=== PATIENT | male | born 1945 | race African-American/Black ===

== ENCOUNTER 2018-06-18 08:37 | Emergency (ER) | payer MEDICARE, MEDICAID ==
--- NOTE | 2018-06-18 09:43 | RAD ---
LEFT KNEE 4 VIEWS: Date; 06/18/18 COMPARISON: None. HISTORY: Left knee swelling for 2 days. FINDINGS: There is a nonspecific large knee joint effusion. There is atherosclerotic calcification posterior to the distal femur and proximal tibia. There is mild medial compartment narrowing with osteophyte formation of the medial femoral condyle. N o acute fracture or dislocation. IMPRESSION: Nonspecific large knee joint effusion which may be inflammatory/infectious in nature. No acute fractu re or evidence of dislocation seen. POS: HECTOR
[2018-06-18] MEDS ORDERED: Lidocaine 1% (PF) 30 ML VIAL ONE (09:57)
[2018-06-18] MEDS ORDERED: HYDROcodone/Acetaminophen 10/325 mg Tablet ONE (09:58)
[2018-06-18 11:07] LABS: Body Fluid Source SYNOVIAL FLUID
[2018-06-18 11:08] LABS: BF Color Yellow; Clarity Cloudy/Turbid (Clear); Tube # EDTA
[2018-06-18 11:11] LABS: RBC Background Count 0.008
[2018-06-18 11:14] LABS: WBC/NonHematic-Auto 11000 /cumm
[2018-06-18 11:15] LABS: RBC Count-Automated 17000 /cumm
[2018-06-18 12:32] LABS: BF Segmented Neutrophils 80 %; Cell Count Non Hematic 17 %; Lymphocytes 3 %
== END 2018-06-18 11:40 | disposition home or self-care (01) ==
LOC: ERS 08:37
DX: M25.462 Effusion, left knee (principal); M25.562 Pain in left knee; E78.5 Hyperlipidemia, unspecified; I10 Essential (primary) hypertension; M10.9 Gout, unspecified; F17.210 Nicotine dependence, cigarettes, uncomplicated; Z79.899 Other long term (current) drug therapy
CPT/HCPCS: 20610; 85060; 87070; 87205; 89051; 89060; J2001

== ENCOUNTER 2018-06-19 12:18 | Emergency (ER) | payer MEDICARE, MEDICAID ==
[2018-06-19 12:49] LABS: #Lymphocytes 2.2 thou/uL (1.20-3.40); #Monocytes 1.2 thou/uL (0.11-0.59); #Neutrophils 8.6 thou/uL (1.40-6.50); %Basophils 0.4 % (0.0-1.0); %Eosinophils 0.2 % (0.0-10.0); %Lymphocytes 17.8 % (21.0-51.0); %Monocytes 10.3 % (0.0-10.0); %Neutrophils 71.4 % (42.0-75.0); Hemoglobin 10.8 g/dL (14.0-18.0); Mean Corpuscular HGB CONC 32.7 g/dL (32.0-36.0); Mean Corpuscular Hemoglobin 25.6 pg (27.0-31.0); Mean Corpuscular Volume 78.4 fL (78.0-98.0); Mean Platelet Volume 8.8 fL (7.4-10.4); Platelet Count 277 thou/uL (130-400); RBC Distribution Width 13.5 % (11.5-14.5); Red Blood Cell (RBC) Count 4.19 mill/uL (4.70-6.10); White Blood Cell (WBC) Count 12.1 thou/uL (4.8-10.8)
[2018-06-19] MEDS ORDERED: Acetaminophen 500 MG TAB ONE (12:53)
[2018-06-19] MEDS ORDERED: Morphine 4 MG/ML VIAL ONE (12:53)
[2018-06-19 12:54] LABS: INR-International Normal Ratio 1.1; PTT 39.2 SEC (22.9-36.1); Prothrombin Time 14.3 SEC (12.0-14.7)
[2018-06-19 13:13] LABS: ALT (SGPT) 13 U/L (8-55); AST (SGOT) 13 U/L (5-34); Alkaline Phosphatase 46 U/L (40-150); Anion Gap 17 mmol/L (10-20); BUN (Urea Nitrogen) 16 mg/dL (8.4-25.7); Bilirubin, Total 0.5 mg/dL (0.2-1.2); Calc. Creatinine Clearance 0 mL/min (70-130); Calcium 9.6 mg/dL (7.8-10.44); Carbon Dioxide 21 mmol/L (23-31); Chloride 103 mmol/L (98-107); Estimated GFR-MDRD 49; Globulin 3.7 g/dL (2.4-3.5); Glucose 101 mg/dL (83-110); Potassium 3.8 mmol/L (3.5-5.1); Protein, Total 7.7 g/dL (5.8-8.1); Sodium 137 mmol/L (136-145)
[2018-06-19 14:18] LABS: BF Color Yellow; Body Fluid Source SYNOVIAL FLUID; Clarity Cloudy/Turbid (Clear); Tube # EDTA
[2018-06-19 14:19] LABS: RBC Background Count 0.004; RBC Count-Automated 14000 /cumm; WBC/NonHematic-Auto 11800 /cumm
[2018-06-19 14:37] LABS: BF Segmented Neutrophils 87 %; Cell Count Non Hematic 11 %; Lymphocytes 2 %
== END 2018-06-19 14:47 | disposition home or self-care (01) ==
LOC: ERS 12:18
DX: M10.9 Gout, unspecified (principal); E78.5 Hyperlipidemia, unspecified; I10 Essential (primary) hypertension; F17.210 Nicotine dependence, cigarettes, uncomplicated; Z79.899 Other long term (current) drug therapy; Z79.1 Long term (current) use of non-steroidal anti-inflammatories (NSAID); Z79.891 Long term (current) use of opiate analgesic
CPT/HCPCS: 20611; 80053; 82945; 85025; 85060; 85610; 85652; 85730; 86140; 87070; 87205; 89051; 89060; 96374; J2270

== ENCOUNTER 2019-01-20 13:13 | Inpatient (IN) | payer MEDICARE, MEDICAID ==
[2019-01-20 14:19] LABS: #Lymphocytes 1.8 thou/uL (1.20-3.40); #Monocytes 1.1 thou/uL (0.11-0.59); #Neutrophils 6.6 thou/uL (1.40-6.50); %Basophils 0.2 % (0.0-1.0); %Eosinophils 0.5 % (0.0-10.0); %Lymphocytes 19.1 % (21.0-51.0); %Monocytes 11.4 % (0.0-10.0); %Neutrophils 68.9 % (42.0-75.0); Hemoglobin 12.1 g/dL (14.0-18.0); Mean Corpuscular HGB CONC 33.3 g/dL (32.0-36.0); Mean Platelet Volume 8.7 fL (7.4-10.4); Platelet Count 257 thou/uL (130-400); RBC Distribution Width 14.5 % (11.5-14.5); Red Blood Cell (RBC) Count 4.49 mill/uL (4.70-6.10); White Blood Cell (WBC) Count 9.6 thou/uL (4.8-10.8)
--- NOTE | 2019-01-20 14:38 | RAD ---
EXAM: 2 views of the left elbow HISTORY: Elbow pain COMPARISON: 04/01/2011 FINDINGS: No elbow effusion is seen. There is no evidence of acute fracture or dislocation. No signi ficant degenerative changes are seen. No soft tissue swelling is present. IMPRESSION: No evidence of acute osseous abnormality.
[2019-01-20 14:44] LABS: ALT (SGPT) 9 U/L (8-55); AST (SGOT) 13 U/L (5-34); Albumin 3.9 g/dL (3.4-4.8); Alkaline Phosphatase 51 U/L (40-150); Anion Gap 13 mmol/L (10-20); BUN (Urea Nitrogen) 16 mg/dL (8.4-25.7); Bilirubin, Total 0.4 mg/dL (0.2-1.2); Calc. Creatinine Clearance 0 mL/min (70-130); Calcium 9.7 mg/dL (7.8-10.44); Carbon Dioxide 22 mmol/L (23-31); Chloride 106 mmol/L (98-107); Estimated GFR-MDRD 58; Globulin 3.5 g/dL (2.4-3.5); Glucose 116 mg/dL (83-110); Potassium 3.7 mmol/L (3.5-5.1); Protein, Total 7.4 g/dL (5.8-8.1); Sodium 137 mmol/L (136-145)
[2019-01-20] MEDS ORDERED: Ondansetron PF 4 MG/2 ML Vial ONE (15:29)
[2019-01-20] MEDS ORDERED: Morphine 4 MG/ML VIAL ONE (15:29)
[2019-01-20] MEDS ORDERED: Lidocaine 1% (PF) 30 ML VIAL ONE (15:50)
[2019-01-20 16:18] LABS: Lactic Acid 1.2 mmol/L (0.5-2.2)
[2019-01-20] MEDS ORDERED: Piperacillin/Tazobactam 3.375 GM VIAL ONE (16:18)
[2019-01-20] MEDS ORDERED: Ketorolac Tromethamine 30 MG/ML VIAL ONE (16:18)
[2019-01-20] MEDS ORDERED: Vancomycin HCl 1.5 GM in Sodium Chloride 0.9% 250 ML 300 ML IVPB SCH (16:30)
[2019-01-20] MEDS ORDERED: Ondansetron PF 4 MG/2 ML Vial IVP PRN ×2 (21:02→21:31)
[2019-01-20] MEDS ORDERED: Acetaminophen 325 MG TAB PO PRN ×2 (21:02→21:24)
[2019-01-20] MEDS ORDERED: HYDROcodone/Acetaminophen 5/325 mg Tablet PO PRN ×2 (21:02)
[2019-01-20] MEDS ORDERED: Ondansetron ODT 4 MG TAB SL PRN (21:02)
[2019-01-20] MEDS ORDERED: hydrALAZINE 20 MG/ML VIAL SLOW IVP PRN (21:24)
[2019-01-20] MEDS ORDERED: Nicotine 14 MG PATCH TD PRN (21:24)
[2019-01-20] MEDS ORDERED: Ondansetron ODT 4 MG TAB PO PRN (21:24)
[2019-01-20] MEDS ORDERED: Senokot S 8.6-50 MG TAB PO PRN (21:24)
[2019-01-20] MEDS ORDERED: Lorazepam 2 MG/ML VIAL SLOW IVP PRN (21:28)
[2019-01-20] MEDS ORDERED: traMADol HCl 50 MG TAB PO PRN ×2 (21:31)
[2019-01-20 21:37] VITALS: BMI 33.0
--- NOTE | 2019-01-20 22:15 | HP ---
CHIEF COMPLAINT: Elbow pain. HISTORY OF PRESENT ILLNESS: This is a 73-year-old male with history of hypertension, chronic kidney disease stage 3, anemia, gout, dyslipidemia, and daily alcohol and tobacco use, who presents to the emergency room complaining of left elbow pain and difficulty straightening his left arm. The patient notes 5 or 6 days ago the onset of a pimple on his left elbow that he was scratching and picking. He reports around 3 days ago the onset of intermittent sharp pain as well as swelling and inability to bend or straighten his elbow. The symptoms did not improve, he decided to seek care today for this. He also has similar symptoms of swelling and pain in his left fifth finger. He reports a history of both in the past related to gout. At home, he tried some Tylenol for the pain, without any relief. He is left-handed, denies any trauma, denies any problems with his elbow before this. He denies any fevers, chills, nausea, or vomiting. In the emergency room, the patient evaluated, and presentation concerning for septic bursitis. He received vancomycin 1.5 g, Zosyn 3.375 g, ketorolac 15 mg, morphine 4 mg, Zofran 4 mg and hospitalist called for admission. There was also an attempt to aspirate by Orthopedics, however, no return of fluid. ALLERGIES: NO KNOWN DRUG ALLERGIES. CURRENT MEDICATIONS: Unknown. The patient's thinks that he is on the following but this list is not complete; 1. Hydralazine. 2. Amlodipine. 3. Colcrys. PAST MEDICAL HISTORY: 1. Gout. 2. Hypertension. 3. Dyslipidemia. 4. Chronic kidney disease, stage 3, followed by Dr. Thompson. 5. Murmur. PAST SURGICAL HISTORY: Hernia repair. SOCIAL HISTORY: The patient is , has 9 children, uses tobacco daily, he formerly used marijuana, and drinks a beer or 2 daily. His is his surrogate decision maker and he is a full code. FAMILY HISTORY: Significant for diabetes, hypertension, and cancer. REVIEW OF SYSTEMS: Negative for fevers, chills, nausea, vomiting, any dental pain. Positive for an occasional shortness of breath with exertion. All remaining review of systems are reviewed and negative. PHYSICAL EXAMINATION: VITAL SIGNS: Blood pressure 147/89, pulse 80, respirations 16, temperature 99.5 , and sats 96% on room air. GENERAL: Awake, alert, and responsive, in no apparent distress. Able to speak in full sentences. HEENT: Poor dentition. Oral mucosa is pink and moist. NECK: Supple and nontender. LYMPHATICS: No palpable cervical or supraclavicular lymphadenopathy. LUNGS: Clear to auscultation bilateral. No audible wheezing, rhonchi, or rales. 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 ABDOMEN: Soft. Present bowel sounds. Nontender. Nondistended. EXTREMITIES: No pitting edema. MUSCULOSKELETAL: His left elbow, he has erythema, edema, tenderness to palpation along the olecranon bursa without any palpable fluctuance. He also has edema of the PIP of the left fifth digit. VASCULAR: 2+ dorsalis pedis pulses. PSYCH: Appears euthymic. NEUROLOGIC: No gross deficits. DANIEL FINDINGS AND TEST RESULTS: CBC; 9.6, 12.1, 36.4, and 257. ESR 75. Renal panel; 137, 3.7, 106, 22, 60, 1.44, and 160. Uric acid 7.9, lactic acid 1.2. CRP 13.1. LFTs are normal. X-ray no acute abnormality. IMPRESSION: 1. Left olecranon bursitis in the context of a papule 5 to 6 days ago and concern for infection, as well as known gout. 2. Left fifth proximal interphalangeal edema and pain, with the same differential as above. 3. Chronic kidney disease, stage 3, stable. 4. Hypertension, unknown control. 5. Chronic anemia, stable. 6. Dyslipidemia. 7. Daily alcohol use. 8. Tobacco abuse. PLAN: 1. Admission in the hospital. 2. Continuing vancomycin with request for Pharmacy to dose, continuing the Zosyn. 3. Orthopedics consult. We will request that they follow along. 4. Obtain home medications and restart if appropriate. 5. Due to renal function, avoid NSAIDs. We will treat the pain, continue the colchicine and monitor for change if this is gout. May need steroids, we will defer to orthopedics. Again, due to his renal function, avoiding NSAIDs. 6. Monitor for any alcohol withdrawal symptoms. 7. Nicotine patch as needed. 8. Monitoring his renal function. 9. Anticipated length of stay is at least 2 midnights for appropriate IV antibiotic coverage, and monitoring the patient's range of motion. The patient may need physical therapy. Hold on this for now pending treatment as noted above. 10. DVT prophylaxis. He is ambulatory. 11. GI prophylaxis, not indicated. 12. Code status is full. Surrogate decision maker is his . I reviewed the plan of care with the patient and his . No questions or further needs at the end of evaluation. Job ID: [id number] MTDD
[2019-01-20] MEDS: Piperacillin/Tazobactam 3.375 GM in Sodium Chloride 0.9% 100 ML IVPB SCH (23:39)
[2019-01-21] MEDS: Piperacillin/Tazobactam 3.375 GM in Sodium Chloride 0.9% 100 ML IVPB SCH ×2 (05:28→12:01)
[2019-01-21 05:45] LABS: #Lymphocytes 1.7 thou/uL (1.20-3.40); #Monocytes 1.3 thou/uL (0.11-0.59); #Neutrophils 6.8 thou/uL (1.40-6.50); %Basophils 0.1 % (0.0-1.0); %Eosinophils 0.5 % (0.0-10.0); %Lymphocytes 17.2 % (21.0-51.0); %Monocytes 13.4 % (0.0-10.0); %Neutrophils 68.8 % (42.0-75.0); Hemoglobin 11.5 g/dL (14.0-18.0); Mean Corpuscular HGB CONC 32.4 g/dL (32.0-36.0); Mean Corpuscular Hemoglobin 27.1 pg (27.0-31.0); Mean Corpuscular Volume 83.6 fL (78.0-98.0); Mean Platelet Volume 8.9 fL (7.4-10.4); Platelet Count 245 thou/uL (130-400); RBC Distribution Width 14.7 % (11.5-14.5); Red Blood Cell (RBC) Count 4.24 mill/uL (4.70-6.10); White Blood Cell (WBC) Count 9.8 thou/uL (4.8-10.8)
[2019-01-21 06:21] LABS: Anion Gap 16 mmol/L (10-20); BUN (Urea Nitrogen) 19 mg/dL (8.4-25.7); Calc. Creatinine Clearance 59 mL/min (70-130); Calcium 9.5 mg/dL (7.8-10.44); Carbon Dioxide 17 mmol/L (23-31); Chloride 107 mmol/L (98-107); Estimated GFR-MDRD 52; Glucose 91 mg/dL (83-110); Potassium 4.6 mmol/L (3.5-5.1); Sodium 136 mmol/L (136-145)
[2019-01-21] MEDS ORDERED: Colchicine 0.6 MG TAB PO SCH ×2 (07:00→09:00)
[2019-01-21 07:14] VITALS: BP 128/70; TEMP 98
[2019-01-21] MEDS ORDERED: Vancomycin HCl 750 MG in Sodium Chloride 0.9% 250 ML 250 ML IVPB SCH ×2 (08:00→12:00)
[2019-01-21] MEDS ORDERED: hydrALAZINE 25 MG TAB PO SCH (09:00)
[2019-01-21] MEDS ORDERED: Vancomycin HCl 1 GM in Premix Bag 1 BAG IVPB SCH (09:00)
--- NOTE | 2019-01-21 09:14 | CON ---
DATE OF CONSULTATION: 01/20/2019 This is Dee Dee Stiles PA-C dictating a report for Lane Davidson MD. REQUESTING PHYSICIAN: Carri Diaz DO CONSULTING PHYSICIAN: Lane Davidson MD REASON FOR CONSULTATION: Left elbow pain. HISTORY OF PRESENT ILLNESS: This is a 73-year-old male who presented to the emergency department with complaints of pain and swelling to the left elbow for approximately 3 days. The patient does report a history of gout. He states that he has also had a washout to this elbow for septic arthritis, which he believes was a couple of years ago. He also states that he had a pimple on the elbow and began scratching and picking at this. When his symptoms did not improve, he presented to the emergency department. He also reports gout presently in his left pinky finger. He denies any recent fever or chills. He is right-hand dominant. He states he is able to move his arm. No falls or trauma. PAST MEDICAL HISTORY: Significant for hypertension, hyperlipidemia, gout, chronic kidney disease stage 3, followed by Dr. Thompson and a cardiac murmur. PAST SURGICAL HISTORY: Hernia repair. SOCIAL HISTORY: The patient is . He uses tobacco daily, formally used marijuana. States he drinks a beer or 2 daily. FAMILY HISTORY: Reviewed and noncontributory. ALLERGIES: NO KNOWN DRUG ALLERGIES. REVIEW OF SYSTEMS: A 10-point review of systems conducted and otherwise negative except for stated above. PHYSICAL EXAMINATION: VITAL SIGNS: Temperature 98.4, pulse of 74, respiratory rate of 18, and blood pressure of 162/71. GENERAL: The patient is awake and alert. He is sitting up in bed. The patient is seen in the emergency department. There is family at bedside. He is awake and alert. No apparent distress. He is pleasant and cooperative with exam today. HEENT: Head is normocephalic and atraumatic. NECK: Supple. Trachea midline. Breathing nonlabored. EXTREMITIES: The left upper extremity was evaluated. The patient is able to flex and extend at the elbow with approximately 75 degrees of motion. He is able to pronate and supinate without any difficulty. He is exquisitely tender to palpation over the olecranon bursa. There is swelling noted in this area. There is some erythema overlying this area as well. There is a visible surgical scar overlying the olecranon bursa. The patient is able to flex and extend at the wrist and move all digits in the hand. There is notable swelling to the PIP of the fifth digit. Distal neurovascular status intact. LABORATORY DATA: Reviewed showing a white blood cell count of 9.6, hemoglobin 12.1, hematocrit 36.4, and platelet count of 257. ESR 75. C-reactive protein is 13.11. RADIOGRAPHIC IMAGING: Including views of the elbow demonstrate no evidence for joint effusion. No fracture. ASSESSMENT: Gout versus bursitis versus cellulitis. PLAN: At this time, we will aspirate his bursa in the emergency department. The patient does have a strong history of gout. He does have great range of motion and no joint effusion on radiographic imaging today. Therefore, he has no findings concerning for a septic joint. This appears to be all located in the bursa. After further reviewing his medical records, it does appear he presented in 2010 to the emergency department and elbow x-rays were obtained. There are no OR records available for review from this visit. Aspiration of left elbow olecranon bursa: The left elbow was prepped with Betadine. 2 mL of 1% lidocaine plain was injected locally for topical anesthesia. Then, an 18-gauge needle was used to aspirate from the olecranon bursa. No fluid was obtained. 4x4s were placed and a pressure dressing was applied using an SAMANTHA wrap. The patient tolerated the procedure well. No complications were incurred. The patient has no fluid in the olecranon bursa. We will plan to admit to the Medicine Service for inpatient antibiotics and cellulitis of the left elbow. Job ID: [id number]
--- NOTE | 2019-01-22 01:52 | DIS ---
DATE OF ADMISSION: 01/20/2019 DATE OF DISCHARGE: 01/21/2019 SNUFF BLENDER: Dr. Davidson of Orthopedics. PROCEDURES PERFORMED: In the emergency room, attempted aspiration of the bursa with no return of fluid. MEDICATIONS: Reconciled at discharge. New medications are: 1. Tramadol 50 mg every 6 hours as needed for pain, prescription provided for 20 tablets, no refills. 2. Keflex 500 mg t.i.d. for 7 days. Prescription provided for 21 tablets, no refills. Medications to resume: The patient is uncertain of his current medications. This is an estimated list, he will resume his usual medications at home. 1. Amlodipine 10 mg daily. 2. Colchicine 0.6 mg daily. 3. Uloric 40 mg daily. 4. Hydralazine 100 mg t.i.d. 5. Aspirin 325 mg daily. 6. Pravastatin 40 mg daily. FINAL DIAGNOSES: 1. Left elbow cellulitis. 2. Acute Gout flare in the left finger and the left foot. SECONDARY DIAGNOSES: 1. Chronic anemia. 2. Chronic kidney disease, stage 3. 3. Hypertension. 4. Dyslipidemia. 5. Tobacco abuse. 6. Daily alcohol use. HISTORY OF PRESENT ILLNESS: Mr. Burns is a 73-year-old male with the above medical problems, who presented to the emergency room with worsening pain and swelling in his left elbow, left 5th digit. The patient reports 5-6 days prior that he had the onset of a papule on his elbow that he picked and scratched at followed by the swelling and redness that progressed. Please see history and physical for full details. HOSPITAL COURSE: The patient was started on Zosyn and vancomycin in the emergency room. Dr. Davidson evaluated the patient and attempted aspiration without any return of fluid. On hospital day #2, the patient reports improvement of his elbow both in the pain as well as the swelling. He has improved range of motion, however, is not able to fully straighten it. The patient was asking when he could go home from the time of admission. I discussed this with Dr. Davidson today who feels that this is not a septic bursitis and the patient can be discharged with treatment for cellulitis. He does not think that MRSA coverage is warranted and therefore, I will prescribe Keflex for a week treatment. I recommend that the patient do follow up with Dr. Davidson in the outpatient setting for monitoring of the cellulitis. Also recommend that he follow up with Dr. Thompson, his laborer for the recurrent gout. The patient is overall feeling well. He does meet criteria for discharge to home. Of note, we do not have an accurate medication record and he will resume his usual home medications and follow up with the primary care provider, Dr. Thompson and Dr. Davidson. PHYSICAL EXAMINATION: VITAL SIGNS: On day of discharge, blood pressure 128/70, pulse 77, temp 98, respirations 18, sats 95% on room air. GENERAL: Awake, alert, responsive, in no apparent distress. Able to speak in regular sentences. LUNGS: Clear to auscultation bilateral. HEART: Normal S1 and S2. Regular rate and rhythm. No significant murmurs. ABDOMEN: Soft with present bowel sounds. EXTREMITIES: His left elbow is mildly erythematous and edematous with some tenderness to palpation and no focal palpable defects. Left 5th PIP is edematous with tenderness to palpation. His left mid foot has some tenderness to palpation without palpable defects and without any significant edema. Left elbow range of motion is approximately 160 degrees to approximately 45 degrees. DANIEL FINDINGS AND TEST RESULTS: CBC; 9.8, 11.5, 35.5, 245. Chemistry; 136, 4.6, 107, 17, 19, 1.59, 91. Calcium 9.5. CRP 13.1. ESR 75. LFTs normal. Elbow x-ray, no evidence of any acute osseous abnormality. DIET: Heart healthy. ACTIVITY: As tolerated. The patient may require physical therapy to rehab his elbow based on infection and limited range of motion. I reviewed with the patient this hospitalization, the importance of antibiotics , the seek care and return for care precautions, and the importance of followup. He demonstrates understanding. FOLLOW-UP: 1. Dr. Davidson in 7-10 days to re-evaluate elbow. 2. Dr. Thompson as soon as possible to discuss gout flares 3. Primary Care Provider to review overall health, discuss any concerns and monitoring as well of both cellulitis and gout. CODE STATUS: Full. TIME SPENT: Total time coordinating discharge is less than 30 minutes. Job ID: [id number] [facility]
== END 2019-01-21 14:08 | disposition home or self-care (01) | DRG 603 ==
LOC: ERS 13:13 → T4-B 15:17
PROVIDERS: ADMIT Family Medicine; ATTEND Family Medicine
PROC: 0RJM3ZZ Inspection of Left Elbow Joint, Percutaneous Approach (ICD-10-PCS; principal; 2019-01-21)
DX: L03.114 Cellulitis of left upper limb (principal); E78.5 Hyperlipidemia, unspecified; I12.9 Hypertensive chronic kidney disease with stage 1 through stage 4 chronic kidney disease, or unspecified chronic kidney disease; D63.1 Anemia in chronic kidney disease; N18.3 Chronic kidney disease, stage 3 (moderate); Z90.49 Acquired absence of other specified parts of digestive tract; F17.200 Nicotine dependence, unspecified, uncomplicated; Z72.89 Other problems related to lifestyle; M10.042 Idiopathic gout, left hand; M10.472 Other secondary gout, left ankle and foot
CPT/HCPCS: 36415; 80048; 80053; 83605; 84550; 85025; 85652; 86140; 87040; J1885; J2001; J2270; J2405; J2543; J3370; J3490; J7050

== ENCOUNTER 2019-02-11 08:39 | Outpatient (CLI) | payer MEDICARE, MEDICAID ==
--- NOTE | 2019-02-11 09:50 | CT ---
CT Abdomen Pelvis W Con: 02/11/2019 12:00 AM CLINICAL INFORMATION: Unspecified abdominal pain COMPARISON: 01/17/2014 TECHNIQUE: Multiple contiguous axial images were obtained and a CT of the abdomen and pelvis with IV contrast. C oronal reformats were performed. FINDINGS: Lower Chest: within normal limits. Abdomen: Liver: within normal limits. Bile Ducts: Normal caliber. Gallbladder: No calcified gallstones. Normal caliber wall. Pancreas: within normal limits. Spleen: within normal limits. Adrenals: within normal limits. Kidneys: Hypodensities measuring up to 2.3 cm in size likely represent cysts. Pelvis: Reproductive Organs: No pelvic masses. Ureters: within normal limits. Bladder: within normal limits. Peritoneum: No ascites or free air, no fluid collection. Bowel: Normal caliber. Normal appendix. Scattered diverticula in the colon. Mesentery and Retroperitoneum: No enlarged mesenteric or retroperitoneal lymph nodes. Vessels: Atherosclerotic calcifications. Abdominal Wall: within normal limits. Bones: Degenerative changes in the spine. IMPRESSION: 1. No evidence of acute intraabdominal or pelvic abnormality. 2. Diverticulosis 3. Bilateral renal cysts
[2019-02-11] MEDS ORDERED: Iopamidol 370 76% 100 ML VIAL ONE (16:38)
== END 2019-02-11 08:40 | disposition home or self-care (01) ==
LOC: CT 08:39
PROVIDERS: ATTEND Physician Assistant
DX: R10.9 Unspecified abdominal pain (principal); K57.90 Diverticulosis of intestine, part unspecified, without perforation or abscess without bleeding; N28.1 Cyst of kidney, acquired
CPT/HCPCS: 74177; 82565; Q9967

== ENCOUNTER 2019-02-26 15:01 | Emergency (ER) | payer MEDICARE, MEDICAID ==
[2019-02-26] MEDS ORDERED: Ketorolac Tromethamine 30 MG/ML VIAL ONE (15:28)
[2019-02-26] MEDS ORDERED: traMADol HCl 50 MG TAB ONE (15:28)
--- NOTE | 2019-02-26 15:31 | RAD ---
XR Chest 1 View Portable History: Fever Comparison: Radiograph 2015 Findings: Heart size is enlarged. No pneumothorax. No effusion. Coronary artery stents. Impression: Cardiomegaly otherwise no acute intrathoracic abnormality.
[2019-02-26 15:32] LABS: Hemoglobin 11.1 g/dL (14.0-18.0); Mean Corpuscular HGB CONC 32.9 g/dL (32.0-36.0); Mean Corpuscular Hemoglobin 26.3 pg (27.0-31.0); Mean Platelet Volume 8.5 fL (7.4-10.4); Platelet Count 316 thou/uL (130-400); RBC Distribution Width 14.6 % (11.5-14.5); Red Blood Cell (RBC) Count 4.23 mill/uL (4.70-6.10)
[2019-02-26 15:50] LABS: Band 1 % (5-11); Lymphocytes 17 % (21-51); MDiff Complete? YES; Monocytes 10 % (0-10); Neutrophil 72 % (42-75); Platelet Morphology Comment Appears Adequate; Polychromasia SLIGHT = 2-3 cells (100X) (0-2/hpf)
[2019-02-26 15:52] LABS: ALT (SGPT) 24 U/L (8-55); AST (SGOT) 27 U/L (5-34); Albumin 3.7 g/dL (3.4-4.8); Alkaline Phosphatase 44 U/L (40-150); Anion Gap 13 mmol/L (10-20); BUN (Urea Nitrogen) 14 mg/dL (8.4-25.7); Bilirubin, Total 0.6 mg/dL (0.2-1.2); Calc. Creatinine Clearance 0 mL/min (70-130); Calcium 9.6 mg/dL (7.8-10.44); Carbon Dioxide 24 mmol/L (23-31); Chloride 103 mmol/L (98-107); Estimated GFR-MDRD 47; Globulin 3.6 g/dL (2.4-3.5); Glucose 104 mg/dL (83-110); Potassium 3.6 mmol/L (3.5-5.1); Protein, Total 7.3 g/dL (5.8-8.1); Sodium 136 mmol/L (136-145); Uric Acid 8.1 mg/dL (3.5-7.2)
[2019-02-26] MEDS ORDERED: Morphine 4 MG/ML VIAL ONE (16:19)
[2019-02-26] MEDS ORDERED: Colchicine 0.6 MG TAB PO SCH (17:30)
[2019-02-26] MEDS ORDERED: methylPREDNISolone Sod Succ/PF 125 MG/2 ML VIAL ONE (18:22)
--- NOTE | 2019-02-28 12:12 | EKG ---
Test Reason : Blood Pressure : / mmHG Vent. Rate : 106 BPM Atrial Rate : 106 BPM P-R Int : 176 ms QRS Dur : 098 ms QT Int : 370 ms P-R-T Axes : 038 -09 129 degrees QTc Int : 491 ms Sinus tachycardia Possible Left atrial enlargement T wave abnormality, consider lateral ischemia Abnormal ECG Confirmed by ILSA HAYWOOD D.O. ([id number]), department editor ALEKS RDZ ([id number] on 02/28/2019 12:11:29 PM Referred By: Confirmed By:ILSA HAYWOOD D.O.
== END 2019-02-26 18:10 | disposition home or self-care (01) ==
LOC: ERS 15:01
DX: M10.9 Gout, unspecified (principal); E78.5 Hyperlipidemia, unspecified; I10 Essential (primary) hypertension; F17.210 Nicotine dependence, cigarettes, uncomplicated; Z79.899 Other long term (current) drug therapy
CPT/HCPCS: 71045; 80053; 83605; 84550; 85025; 87040; 93005; 94760; 96365; 96366; 96375; J1885; J2270; J2930; J3370

== ENCOUNTER 2020-08-11 09:20 | Outpatient (CLI) | payer MEDICARE, MEDICAID | END 2020-08-11 09:21 | disposition home or self-care (01) | LOC: BICULT 09:20 | PROVIDERS: ATTEND Physician Assistant | DX: Z13.6 Encounter for screening for cardiovascular disorders (principal); M25.512 Pain in left shoulder; G89.29 Other chronic pain; Z00.00 Encounter for general adult medical examination without abnormal findings; M19.012 Primary osteoarthritis, left shoulder | CPT/HCPCS: 73030; 76775; 80053; 80061; 81001; 85025; 86803; 87522; G0103; 36415 ==

== ENCOUNTER 2021-06-27 05:44 | Emergency (ER) | payer MEDICARE, MEDICAID ==
[2021-06-27 17:13] LABS: SARS-CoV-2 PCR by NAA Not Detected (NotDetected)
== END 2021-06-27 06:28 | disposition home or self-care (01) ==
LOC: ERS 05:44
DX: R05.9 Cough, unspecified (principal); E78.5 Hyperlipidemia, unspecified; I10 Essential (primary) hypertension; F17.210 Nicotine dependence, cigarettes, uncomplicated; Z20.822 Contact with and (suspected) exposure to COVID-19; Z79.82 Long term (current) use of aspirin; Z79.899 Other long term (current) drug therapy
CPT/HCPCS: 71045; 99285; U0003; U0005

== ENCOUNTER 2022-02-01 10:38 | Emergency (ER) | payer MEDICARE, MEDICAID ==
[2022-02-01] MEDS ORDERED: traMADol HCl 50 MG TAB ONE (12:41)
== END 2022-02-01 12:25 | disposition home or self-care (01) ==
LOC: EEVIPCON 10:38 → ERS 10:38
DX: S83.92XA Sprain of unspecified site of left knee, initial encounter (principal); M25.462 Effusion, left knee; E78.5 Hyperlipidemia, unspecified; I10 Essential (primary) hypertension; M10.9 Gout, unspecified; F17.210 Nicotine dependence, cigarettes, uncomplicated; Z79.899 Other long term (current) drug therapy; Z79.82 Long term (current) use of aspirin; X58.XXXA Exposure to other specified factors, initial encounter

== ENCOUNTER 2022-02-07 11:05 | Emergency (ER) | payer OTHER, MEDICAID ==
[2022-02-07] MEDS ORDERED: Lidocaine 1% PF 5 ML VIAL ONE (13:01)
[2022-02-07] MEDS ORDERED: HYDROcodone/Acetaminophen 5/325 mg Tablet ONE (13:54)
== END 2022-02-07 14:02 | disposition home or self-care (01) ==
LOC: ERS 11:05
DX: M25.462 Effusion, left knee (principal); M25.562 Pain in left knee; E78.5 Hyperlipidemia, unspecified; I10 Essential (primary) hypertension; M10.9 Gout, unspecified; F17.210 Nicotine dependence, cigarettes, uncomplicated; Z79.899 Other long term (current) drug therapy; Z79.82 Long term (current) use of aspirin
CPT/HCPCS: 20611

== ENCOUNTER 2022-03-25 13:02 | Emergency (ER) | payer OTHER, MEDICAID ==
[2022-03-25 13:56] LABS: #Eosinphils 0.1 thou/uL (0.0-0.7); #Lymphocytes 1.9 thou/uL (1.20-3.40); #Monocytes 0.7 thou/uL (0.11-0.59); #Neutrophils 3.3 thou/uL (1.40-6.50); %Basophils 0.5 % (0.0-1.0); %Eosinophils 1.4 % (0.0-10.0); %Lymphocytes 31.1 % (21.0-51.0); %Monocytes 11.9 % (0.0-10.0); Hemoglobin 10.3 g/dL (14.0-18.0); Mean Corpuscular HGB CONC 30.6 g/dL (32.0-36.0); Mean Corpuscular Hemoglobin 25.6 pg (27.0-31.0); Mean Corpuscular Volume 83.5 fL (78.0-98.0); Mean Platelet Volume 9.5 fL (7.4-10.4); Platelet Count 308 thou/uL (130-400); RBC Distribution Width 19.5 % (11.5-14.5); Red Blood Cell (RBC) Count 4.04 mill/uL (4.70-6.10)
[2022-03-25 14:35] LABS: PTT 40.3 sec (22.9-36.1)
[2022-03-25 14:36] LABS: D-Dimer Test 1.87 *mcg/mL (0.27-0.43); INR-International Normal Ratio 1.2
[2022-03-25] MEDS ORDERED: Furosemide 40 MG/4 ML VIAL ONE (15:06)
[2022-03-25 15:40] LABS: ALT (SGPT) 30 U/L (8-55); AST (SGOT) 30 U/L (5-34); Albumin 3.7 g/dL (3.4-4.8); Alkaline Phosphatase 72 U/L (40-110); Anion Gap 14 mmol/L (10-20); BUN (Urea Nitrogen) 22 mg/dL (8.4-25.7); Bilirubin, Total 0.3 mg/dL (0.2-1.2); Calc. Creatinine Clearance 0 mL/min (70-130); Calcium 9.2 mg/dL (7.8-10.44); Carbon Dioxide 23 mmol/L (23-31); Chloride 106 mmol/L (98-107); Estimated GFR 57; Globulin 3.5 g/dL (2.4-3.5); Glucose 104 mg/dL (83-110); Lipase 26 U/L (8-78); Potassium 4.1 mmol/L (3.5-5.1); Protein, Total 7.2 g/dL (5.8-8.1); Sodium 139 mmol/L (136-145)
== END 2022-03-25 14:57 ==
LOC: ERS 13:02
DX: K81.0 Acute cholecystitis (principal); I11.0 Hypertensive heart disease with heart failure; I50.9 Heart failure, unspecified; F17.210 Nicotine dependence, cigarettes, uncomplicated; Z79.82 Long term (current) use of aspirin; Z79.899 Other long term (current) drug therapy
CPT/HCPCS: 36415; 71045; 76705; 80053; 83605; 83690; 83735; 83880; 84484; 85025; 85379; 85610; 85730; 93005; 94760; 96374; J1940

== ENCOUNTER 2022-08-28 08:25 | Inpatient (IN) | payer OTHER, MEDICAID ==
[2022-08-28 09:20] LABS: #Basophils 0.1 thou/uL (0.0-0.2); #Eosinphils 0.1 thou/uL (0.0-0.7); #Lymphocytes 1.7 thou/uL (1.20-3.40); #Neutrophils 5.3 thou/uL (1.40-6.50); %Eosinophils 0.7 % (0.0-10.0); %Monocytes 12.5 % (0.0-10.0); %Neutrophils 64.8 % (42.0-75.0); Hemoglobin 10.5 g/dL (14.0-18.0); Mean Corpuscular HGB CONC 32.2 g/dL (32.0-36.0); Mean Corpuscular Volume 83.9 fl (78.0-98.0); Platelet Count 254 10x3/uL (130-400); Red Blood Cell (RBC) Count 3.87 mill/uL (4.70-6.10); White Blood Cell (WBC) Count 8.2 10x3/uL (4.8-10.8)
[2022-08-28] MEDS ORDERED: Iopamidol-370 76% 500 ML MDV (1 ML CHARGE) ONE (09:30)
[2022-08-28 09:40] LABS: Anion Gap 15 mmol/L (10-20); BUN (Urea Nitrogen) 27 mg/dL (8.4-25.7); Calc. Creatinine Clearance 0 mL/min (70-130); Carbon Dioxide 19 mmol/L (23-31); Chloride 110 mmol/L (98-107); Potassium 4.5 mmol/L (3.5-5.1); Sodium 139 mmol/L (136-145)
[2022-08-28 09:41] LABS: ALT (SGPT) 31 U/L (8-55); AST (SGOT) 20 U/L (5-34); Albumin 3.8 g/dL (3.4-4.8); Alkaline Phosphatase 67 U/L (40-110); Bilirubin, Total 0.4 mg/dL (0.2-1.2); Calcium 8.9 mg/dL (7.8-10.44); Estimated GFR 44; Globulin 2.7 g/dL (2.4-3.5); Glucose 89 mg/dL (83-110); Lipase 30 U/L (8-78); Protein, Total 6.5 g/dL (5.8-8.1)
[2022-08-28 10:01] LABS: CKMB 2.5 ng/mL (0-6.6)
[2022-08-28] MEDS ORDERED: Furosemide 40 MG/4 ML VIAL ONE (11:49)
[2022-08-28 12:27] LABS: Bacteria/HPF 2+ HPF (None Seen); Bilirubin Negative (Negative); Blood, Urine Negative (Negative); Clarity Clear (Clear); Glucose, Urine (Dipstick) 500 mg/dL (Negative); Ketone, Urine Negative (Negative); Leukocyte Negative Leu/uL (Negative); Nitrite 2+ (Negative); Protein, Urine (Dipstick) 10 mg/dL (Neg-Trace); RBC/HPF None Seen HPF (0-3); Specific Gravity, Urine 1.011 (1.002-1.036); Squamous Epithelial 0-3 HPF (0-3); Urobilinogen Normal mg/dL (Less than 2)
[2022-08-28] MEDS ORDERED: Senokot S 8.6-50 MG TAB PO PRN (12:48)
[2022-08-28] MEDS ORDERED: Acetaminophen 650 MG Suppository PR PRN (12:48)
[2022-08-28] MEDS ORDERED: Bisacodyl 5 MG TAB PO PRN (12:48)
[2022-08-28] MEDS ORDERED: Ondansetron ODT 4 MG TAB PO PRN (12:48)
[2022-08-28] MEDS ORDERED: Acetaminophen 325 MG TAB PO PRN (12:48)
[2022-08-28] MEDS ORDERED: Moisturizing Cream (Eucerin) 113 GM JAR TOP PRN (12:50)
[2022-08-28] MEDS ORDERED: Benzonatate 100 MG CAP PO PRN (12:50)
[2022-08-28] MEDS ORDERED: Artificial Tear Sol 15 ML BOT EA EYE PRN (12:50)
[2022-08-28] MEDS ORDERED: Cepastat Lozenges 1 LOZ PO PRN (12:50)
[2022-08-28 13:05] LABS: Troponin I 0.045 ng/mL (< 0.028)
[2022-08-28] MEDS ORDERED: Dextrose 5% in Water 1,000 ML IV PRN (13:06)
[2022-08-28] MEDS ORDERED: HumaLOG 300 UNITS/3 ML VIAL SC PRN ×2 (13:06)
[2022-08-28] MEDS ORDERED: Dextrose 50% Abboject 50 ML SYRINGE SLOW IVP PRN (13:06)
[2022-08-28 13:12] VITALS: BMI 31.0
[2022-08-28] MEDS: metroNIDAZOLE 500 MG in Premix Bag 1 BAG IVPB SCH ×2 (14:51→22:12)
[2022-08-28] MEDS: Heparin 5,000 UNITS/ML VIAL SC SCH ×2 (14:51→20:42)
[2022-08-28 15:15] LABS: Lactic Acid 1.9 mmol/L (0.5-2.2)
[2022-08-28 15:25] LABS: Troponin I 0.046 ng/mL (< 0.028)
[2022-08-28] MEDS: cefTRIAXone\\ROCEPHIN 1 GM in Sodium Chloride 0.9% 100 ML IVPB SCH (16:01)
[2022-08-28] MEDS ORDERED: Carvedilol 3.125 MG TAB PO SCH (17:00)
[2022-08-28] MEDS: Sacubitril 49 MG/Valsartan 51 MG TABLET PO SCH (20:41)
[2022-08-28] MEDS: Carvedilol 6.25 MG TAB PO SCH (20:41)
[2022-08-29 05:24] LABS: #Eosinphils 0.1 thou/uL (0.0-0.7); #Lymphocytes 2.3 thou/uL (1.20-3.40); #Monocytes 1.1 thou/uL (0.11-0.59); #Neutrophils 5.5 thou/uL (1.40-6.50); %Basophils 0.5 % (0.0-1.0); %Eosinophils 1.2 % (0.0-10.0); %Monocytes 11.9 % (0.0-10.0); %Neutrophils 61.3 % (42.0-75.0); Hemoglobin 10.8 g/dL (14.0-18.0); Mean Corpuscular HGB CONC 31.1 g/dL (32.0-36.0); Mean Corpuscular Hemoglobin 26.3 pg (27.0-31.0); Mean Corpuscular Volume 84.4 fl (78.0-98.0); Mean Platelet Volume 8.8 fL (7.4-10.4); Platelet Count 274 10x3/uL (130-400); RBC Distribution Width 18.2 % (11.5-14.5); Red Blood Cell (RBC) Count 4.13 mill/uL (4.70-6.10)
[2022-08-29 05:32] LABS: ALT (SGPT) 27 U/L (8-55); AST (SGOT) 20 U/L (5-34); Albumin 3.6 g/dL (3.4-4.8); Alkaline Phosphatase 70 U/L (40-110); Anion Gap 15 mmol/L (10-20); BUN (Urea Nitrogen) 33 mg/dL (8.4-25.7); Bilirubin, Total 0.3 mg/dL (0.2-1.2); Calc. Creatinine Clearance 48 mL/min (70-130); Calcium 9.2 mg/dL (7.8-10.44); Carbon Dioxide 17 mmol/L (23-31); Chloride 111 mmol/L (98-107); Estimated GFR 40; Globulin 3.2 g/dL (2.4-3.5); Glucose 105 mg/dL (83-110); Lipase 45 U/L (8-78); Potassium 4.1 mmol/L (3.5-5.1); Protein, Total 6.8 g/dL (5.8-8.1); Sodium 139 mmol/L (136-145)
[2022-08-29] MEDS: metroNIDAZOLE 500 MG in Premix Bag 1 BAG IVPB SCH ×3 (06:14→20:53)
[2022-08-29] MEDS ORDERED: Lactated Ringer's 250 ML IV SCH (07:30)
[2022-08-29] MEDS ORDERED: Lactated Ringer's 1,000 ML IV SCH (07:30)
[2022-08-29] MEDS: Furosemide 40 MG TAB PO SCH (09:21)
[2022-08-29] MEDS: Allopurinol 100 MG TAB PO SCH (09:21)
[2022-08-29] MEDS: Sacubitril 49 MG/Valsartan 51 MG TABLET PO SCH ×2 (09:21→20:51)
[2022-08-29] MEDS: Potassium Chloride 10 MEQ TAB PO SCH (09:21)
[2022-08-29] MEDS: Carvedilol 3.125 MG TAB PO SCH (09:21)
[2022-08-29] MEDS: Aspirin 81 mg Enteric Coated Tablet PO SCH (09:21)
[2022-08-29] MEDS: Clopidogrel Bisulfate 75 MG TAB PO SCH (09:21)
[2022-08-29] MEDS: Heparin 5,000 UNITS/ML VIAL SC SCH ×3 (09:22→20:51)
[2022-08-29] MEDS: Polyethylene Glycol 3350 17 GM Packet PO SCH (09:22)
[2022-08-29] MEDS: cefTRIAXone\\ROCEPHIN 1 GM in Sodium Chloride 0.9% 100 ML IVPB SCH (15:14)
[2022-08-29] MEDS: Albumin 25% 25 GM/100 ML BOT IVPB SCH ×2 (18:06→23:09)
[2022-08-29] MEDS: Rosuvastatin 20 MG TAB PO SCH (20:51)
[2022-08-29] MEDS: Sodium Bicarbonate Tab 325 MG TAB PO SCH (20:52)
[2022-08-29] MEDS: Carvedilol 6.25 MG TAB PO SCH (20:52)
[2022-08-30] MEDS: metroNIDAZOLE 500 MG in Premix Bag 1 BAG IVPB SCH ×3 (04:56→20:47)
[2022-08-30] MEDS: Albumin 25% 25 GM/100 ML BOT IVPB SCH ×4 (06:01→21:58)
[2022-08-30 08:57] LABS: #Eosinphils 0.2 thou/uL (0.0-0.7); #Lymphocytes 1.6 thou/uL (1.20-3.40); #Monocytes 0.8 thou/uL (0.11-0.59); %Eosinophils 2.9 % (0.0-10.0); %Lymphocytes 24.1 % (21.0-51.0); %Monocytes 12.7 % (0.0-10.0); %Neutrophils 60.3 % (42.0-75.0); Hemoglobin 10.5 g/dL (14.0-18.0); Mean Corpuscular HGB CONC 31.4 g/dL (32.0-36.0); Mean Corpuscular Hemoglobin 26.5 pg (27.0-31.0); Mean Corpuscular Volume 84.5 fl (78.0-98.0); Mean Platelet Volume 9.1 fL (7.4-10.4); Platelet Count 222 10x3/uL (130-400); RBC Distribution Width 18.1 % (11.5-14.5); Red Blood Cell (RBC) Count 3.97 mill/uL (4.70-6.10); White Blood Cell (WBC) Count 6.6 10x3/uL (4.8-10.8)
[2022-08-30 09:11] LABS: Anion Gap 14 mmol/L (10-20); BUN (Urea Nitrogen) 34 mg/dL (8.4-25.7); Calc. Creatinine Clearance 56 mL/min (70-130); Calcium 9.3 mg/dL (7.8-10.44); Carbon Dioxide 20 mmol/L (23-31); Chloride 111 mmol/L (98-107); Estimated GFR 48; Glucose 105 mg/dL (83-110); Potassium 3.9 mmol/L (3.5-5.1); Sodium 141 mmol/L (136-145)
[2022-08-30] MEDS ORDERED: Furosemide 40 MG/4 ML VIAL SLOW IVP SCH (09:45)
[2022-08-30] MEDS ORDERED: Empagliflozin 10 MG TAB PO SCH (10:00)
[2022-08-30] MEDS: Sacubitril 49 MG/Valsartan 51 MG TABLET PO SCH ×2 (10:22→20:47)
[2022-08-30] MEDS: Polyethylene Glycol 3350 17 GM Packet PO SCH (10:22)
[2022-08-30] MEDS: Potassium Chloride 10 MEQ TAB PO SCH (10:23)
[2022-08-30] MEDS: Allopurinol 100 MG TAB PO SCH (10:23)
[2022-08-30] MEDS: Sodium Bicarbonate Tab 325 MG TAB PO SCH ×3 (10:23→20:46)
[2022-08-30] MEDS: Heparin 5,000 UNITS/ML VIAL SC SCH ×3 (10:23→20:46)
[2022-08-30] MEDS: Aspirin 81 mg Enteric Coated Tablet PO SCH (10:23)
[2022-08-30] MEDS: Carvedilol 3.125 MG TAB PO SCH (10:24)
[2022-08-30] MEDS: Clopidogrel Bisulfate 75 MG TAB PO SCH (10:24)
[2022-08-30] MEDS: Furosemide 40 MG TAB PO SCH (10:33)
[2022-08-30] MEDS: DOBUTamine 500 mg/250 ml 250 ML IVPB SCH (11:32)
[2022-08-30] MEDS ORDERED: Albumin 25% 25 GM/100 ML BOT IVPB SCH (12:00)
[2022-08-30 12:09] LABS: Magnesium 1.8 mg/dL (1.6-2.6)
[2022-08-30] MEDS: Furosemide 20 MG/2 ML VIAL SLOW IVP SCH (14:43)
[2022-08-30] MEDS: cefTRIAXone\\ROCEPHIN 1 GM in Sodium Chloride 0.9% 100 ML IVPB SCH (16:04)
[2022-08-30] MEDS ORDERED: Potassium Chloride 20 MEQ TAB PO SCH (17:00)
[2022-08-30] MEDS: Rosuvastatin 20 MG TAB PO SCH (20:47)
[2022-08-31] MEDS: DOBUTamine 500 mg/250 ml 250 ML IVPB SCH (04:52)
[2022-08-31] MEDS: metroNIDAZOLE 500 MG in Premix Bag 1 BAG IVPB SCH ×3 (05:34→22:24)
[2022-08-31] MEDS: Furosemide 20 MG/2 ML VIAL SLOW IVP SCH ×2 (05:34→18:46)
[2022-08-31] MEDS: Albumin 25% 25 GM/100 ML BOT IVPB SCH ×3 (06:02→18:46)
[2022-08-31 06:18] LABS: Anion Gap 17 mmol/L (10-20); BUN (Urea Nitrogen) 27 mg/dL (8.4-25.7); Calc. Creatinine Clearance 66 mL/min (70-130); Calcium 9.5 mg/dL (7.8-10.44); Carbon Dioxide 19 mmol/L (23-31); Chloride 111 mmol/L (98-107); Estimated GFR 58; Glucose 93 mg/dL (83-110); Potassium 3.6 mmol/L (3.5-5.1); Sodium 143 mmol/L (136-145)
[2022-08-31] MEDS ORDERED: Gentamicin 80 MG/2 ML VIAL ONE (13:54)
[2022-08-31] MEDS ORDERED: CEFAZOLIN 1 GM VIAL ONE (13:54)
[2022-08-31] MEDS ORDERED: Lidocaine 1% (PF) 30 ML VIAL ONE ×2 (13:54→16:19)
[2022-08-31] MEDS: Aspirin 81 mg Enteric Coated Tablet PO SCH (14:04)
[2022-08-31] MEDS: Allopurinol 100 MG TAB PO SCH (14:04)
[2022-08-31] MEDS: Heparin 5,000 UNITS/ML VIAL SC SCH ×3 (14:04→20:59)
[2022-08-31] MEDS: Clopidogrel Bisulfate 75 MG TAB PO SCH (14:04)
[2022-08-31] MEDS: Potassium Chloride 10 MEQ TAB PO SCH (14:04)
[2022-08-31] MEDS: Carvedilol 3.125 MG TAB PO SCH (14:04)
[2022-08-31] MEDS: Sodium Bicarbonate Tab 325 MG TAB PO SCH ×3 (14:05→20:27)
[2022-08-31] MEDS: Polyethylene Glycol 3350 17 GM Packet PO SCH (14:05)
[2022-08-31] MEDS: Sacubitril 49 MG/Valsartan 51 MG TABLET PO SCH ×2 (14:05→20:27)
[2022-08-31] MEDS ORDERED: Midazolam HCl 2 mg/2 ml Vial ONE ×2 (14:22→14:51)
[2022-08-31] MEDS ORDERED: FENTANYL 50 MCG/ML 1 ML VIAL ONE ×2 (14:23→15:27)
[2022-08-31] MEDS ORDERED: Propofol 1,000 MG/100 ML VIAL IV ONE (15:56)
[2022-08-31] MEDS ORDERED: PROPOFOL 20 ML ONE (15:57)
[2022-08-31] MEDS ORDERED: Lidocaine 1% PF 5 ML VIAL ONE (16:00)
[2022-08-31] MEDS ORDERED: PROPOFOL 200 MG/20 ML VIAL ONE (16:00)
[2022-08-31 17:22] LABS: Actual Bicarbonate (HCO3a) 23.6 mEq/L (22-28); Base Excess (BEa) -3.6 mEq/L (-2.0 to +3.0); CO2 Tension 53.4 mmHg (35.0-45.0); Calcium, Ionized (arterial) 1.18 mmol/L (1.12-1.30); Carboxyhemoglobin (COHb) 0.4 gm% (0.0-3.0); Hemoglobin (Hb) 10.3 g/dL (14.0-18.0); O2 Tension (PaO2), arterial 170.3 mmHg (> 70.0); Potassium - ABG Lab 3.55 mmol/L (3.70-5.30); pH, Arterial 7.26 (7.35-7.45)
[2022-08-31 17:23] LABS: Puncture Site Arterial Line
[2022-08-31] MEDS ORDERED: Ondansetron HCl/PF 4 MG/2 ML Vial IVP PRN (18:21)
[2022-08-31] MEDS: cefTRIAXone\\ROCEPHIN 1 GM in Sodium Chloride 0.9% 100 ML IVPB SCH ×2 (18:47→19:33)
[2022-08-31] MEDS ORDERED: Lorazepam 2 MG/ML VIAL SLOW IVP PRN (18:49)
[2022-08-31] MEDS ORDERED: Lorazepam 0.5 MG TAB PO PRN (19:01)
[2022-08-31] MEDS ORDERED: Labetalol HCl 100 MG/20 ML VIAL ONE (19:07)
[2022-08-31] MEDS: Rosuvastatin 20 MG TAB PO SCH (20:27)
[2022-08-31] MEDS: HYDROcodone/Acetaminophen 5/325 mg Tablet PO PRN (20:42)
[2022-08-31 21:25] LABS: Actual Bicarbonate (HCO3v) 23 mEq/L (22-28); Base Excess -2.7 mEq/L (-2.0 to +3.0); Calcium, Ionized (venous) 1.14 mmol/L (1.16-1.32); Chloride (VBG) 107 mmol/L (98-106); Hemoglobin (Hb) 11.2 g/dL (12.6-17.4); Potassium (VBG) 3.69 mmol/L (3.70-5.30); pH (venous) 7.32 (7.32-7.43)
[2022-08-31] MEDS: Cephalexin 250 MG CAP PO SCH (22:23)
[2022-09-01] MEDS ORDERED: DOBUTamine 500 mg/250 ml 250 ML IVPB SCH (00:47)
[2022-09-01] MEDS: HYDROcodone/Acetaminophen 5/325 mg Tablet PO PRN ×4 (03:12→20:52)
[2022-09-01 05:47] LABS: Anion Gap 16 mmol/L (10-20); BUN (Urea Nitrogen) 19 mg/dL (8.4-25.7); Calc. Creatinine Clearance 70 mL/min (70-130); Calcium 9.5 mg/dL (7.8-10.44); Carbon Dioxide 21 mmol/L (23-31); Chloride 110 mmol/L (98-107); Estimated GFR 64; Glucose 118 mg/dL (83-110); Potassium 3.5 mmol/L (3.5-5.1); Sodium 143 mmol/L (136-145)
[2022-09-01] MEDS: metroNIDAZOLE 500 MG in Premix Bag 1 BAG IVPB SCH ×3 (06:12→21:10)
[2022-09-01] MEDS: Furosemide 20 MG/2 ML VIAL SLOW IVP SCH ×2 (06:12→14:56)
[2022-09-01] MEDS: Sacubitril 49 MG/Valsartan 51 MG TABLET PO SCH ×2 (07:42→20:53)
[2022-09-01] MEDS: Sodium Bicarbonate Tab 325 MG TAB PO SCH ×3 (07:43→20:53)
[2022-09-01] MEDS: Allopurinol 100 MG TAB PO SCH (07:45)
[2022-09-01] MEDS: Potassium Chloride 10 MEQ TAB PO SCH (07:45)
[2022-09-01] MEDS: Clopidogrel Bisulfate 75 MG TAB PO SCH (07:46)
[2022-09-01] MEDS: Carvedilol 3.125 MG TAB PO SCH ×2 (07:46→17:48)
[2022-09-01] MEDS: Aspirin 81 mg Enteric Coated Tablet PO SCH (07:46)
[2022-09-01] MEDS: Heparin 5,000 UNITS/ML VIAL SC SCH ×3 (07:46→20:53)
[2022-09-01] MEDS: Cephalexin 250 MG CAP PO SCH ×3 (07:56→20:53)
[2022-09-01] MEDS: Polyethylene Glycol 3350 17 GM Packet PO SCH (08:05)
[2022-09-01] MEDS: cefTRIAXone\\ROCEPHIN 1 GM in Sodium Chloride 0.9% 100 ML IVPB SCH (17:48)
[2022-09-01] MEDS: Rosuvastatin 20 MG TAB PO SCH (20:53)
[2022-09-02] MEDS ORDERED: Colchicine 0.6 MG TAB PO SCH ×3 (03:15→21:00)
[2022-09-02 06:14] LABS: Anion Gap 13 mmol/L (10-20); BUN (Urea Nitrogen) 19 mg/dL (8.4-25.7); Calc. Creatinine Clearance 79 mL/min (70-130); Calcium 9.4 mg/dL (7.8-10.44); Carbon Dioxide 22 mmol/L (23-31); Chloride 111 mmol/L (98-107); Estimated GFR 74; Glucose 94 mg/dL (83-110); Potassium 3.4 mmol/L (3.5-5.1); Sodium 143 mmol/L (136-145)
[2022-09-02] MEDS: metroNIDAZOLE 500 MG in Premix Bag 1 BAG IVPB SCH ×2 (06:20→13:19)
[2022-09-02] MEDS: Furosemide 20 MG/2 ML VIAL SLOW IVP SCH ×2 (06:20→13:17)
[2022-09-02] MEDS: HYDROcodone/Acetaminophen 5/325 mg Tablet PO PRN ×2 (06:27→13:17)
[2022-09-02] MEDS: Cephalexin 250 MG CAP PO SCH ×2 (07:42→16:30)
[2022-09-02] MEDS: Aspirin 81 mg Enteric Coated Tablet PO SCH (07:43)
[2022-09-02] MEDS: Sodium Bicarbonate Tab 325 MG TAB PO SCH ×2 (07:43→16:30)
[2022-09-02] MEDS: Clopidogrel Bisulfate 75 MG TAB PO SCH (07:43)
[2022-09-02] MEDS: Sacubitril 49 MG/Valsartan 51 MG TABLET PO SCH (07:43)
[2022-09-02] MEDS: Carvedilol 3.125 MG TAB PO SCH (07:43)
[2022-09-02] MEDS: Potassium Chloride 10 MEQ TAB PO SCH (07:44)
[2022-09-02] MEDS: Polyethylene Glycol 3350 17 GM Packet PO SCH (07:44)
[2022-09-02] MEDS: Heparin 5,000 UNITS/ML VIAL SC SCH ×2 (07:44→16:30)
[2022-09-02] MEDS: Allopurinol 100 MG TAB PO SCH (07:44)
[2022-09-02] MEDS ORDERED: Empagliflozin 10 MG TAB PO SCH (09:00)
[2022-09-02] MEDS ORDERED: Potassium Chloride 20 MEQ TAB PO SCH (12:00)
[2022-09-02] MEDS: Furosemide 40 MG TAB PO SCH ×2 (14:40→16:30)
[2022-09-02] MEDS: cefTRIAXone\\ROCEPHIN 1 GM in Sodium Chloride 0.9% 100 ML IVPB SCH (16:30)
[2022-09-02 16:51] VITALS: BP 124/75; TEMP 98.4
[2022-09-03] MEDS ORDERED: Potassium Chloride 20 MEQ TAB PO SCH (08:00)
== END 2022-09-02 16:25 | disposition home or self-care (01) | DRG 226 ==
LOC: ERS 08:25 → 2SW 12:47 → OBSVTOIN 08-29 16:28
PROVIDERS: ADMIT Family Medicine; ATTEND Family Medicine
PROC: 0JH608Z Insertion of Defibrillator Generator into Chest Subcutaneous Tissue and Fascia, Open Approach (ICD-10-PCS; principal; 2022-08-29)
PROC: 02H60KZ Insertion of Defibrillator Lead into Right Atrium, Open Approach (ICD-10-PCS; 2022-08-29)
PROC: 02HL0KZ Insertion of Defibrillator Lead into Left Ventricle, Open Approach (ICD-10-PCS; 2022-08-29)
PROC: 02HK0KZ Insertion of Defibrillator Lead into Right Ventricle, Open Approach (ICD-10-PCS; 2022-08-29)
DX: I13.0 Hypertensive heart and chronic kidney disease with heart failure and stage 1 through stage 4 chronic kidney disease, or unspecified chronic kidney disease (principal); I50.43 Acute on chronic combined systolic (congestive) and diastolic (congestive) heart failure; N17.9 Acute kidney failure, unspecified; I25.10 Atherosclerotic heart disease of native coronary artery without angina pectoris; I27.20 Pulmonary hypertension, unspecified; M10.9 Gout, unspecified; E78.5 Hyperlipidemia, unspecified; I42.9 Cardiomyopathy, unspecified; Z95.5 Presence of coronary angioplasty implant and graft; Z95.0 Presence of cardiac pacemaker; Z87.891 Personal history of nicotine dependence
CPT/HCPCS: 33216; 33225; 33249; 36415; 36416; 71045; 74177; 76705; 80048; 80053; 81003; 81015; 82553; 82805; 83605; 83690; 83735; 83880; 84484; 85025; 93005; 93010; 94760; 96365; 96366; 96374; 96375; 96376; C1769; G0378; J0690; J0696; J1250; J1580; J1644; J1940; J2001; J2250; J2704; J3010; J3490; J7120; P9047; Q0162; Q9967; U0003; U0005

== ENCOUNTER 2022-09-09 21:50 | Emergency (ER) | payer MEDICARE, MEDICAID ==
[2022-09-09 23:13] LABS: Hemoglobin 11.5 g/dL (14.0-18.0); Mean Corpuscular HGB CONC 31.3 g/dL (32.0-36.0); Mean Corpuscular Volume 86.3 fl (78.0-98.0); RBC Distribution Width 16.9 % (11.5-14.5); Red Blood Cell (RBC) Count 4.25 mill/uL (4.70-6.10); White Blood Cell (WBC) Count 12.9 10x3/uL (4.8-10.8)
[2022-09-09 23:25] LABS: ALT (SGPT) 13 U/L (8-55); AST (SGOT) 16 U/L (5-34); Albumin 4.1 g/dL (3.4-4.8); Alkaline Phosphatase 46 U/L (40-110); Anion Gap 17 mmol/L (10-20); BUN (Urea Nitrogen) 21 mg/dL (8.4-25.7); Bilirubin, Total 0.4 mg/dL (0.2-1.2); Calc. Creatinine Clearance 0 mL/min (70-130); Calcium 9.5 mg/dL (7.8-10.44); Carbon Dioxide 15 mmol/L (23-31); Chloride 108 mmol/L (98-107); Estimated GFR 44; Globulin 3.5 g/dL (2.4-3.5); Glucose 107 mg/dL (83-110); Lipase 17 U/L (8-78); Potassium 3.8 mmol/L (3.5-5.1); Protein, Total 7.6 g/dL (5.8-8.1); Sodium 136 mmol/L (136-145)
[2022-09-09] MEDS ORDERED: Morphine 4 MG/ML VIAL ONE (23:40)
[2022-09-09] MEDS ORDERED: Ondansetron PF 4 MG/2 ML Vial ONE (23:40)
[2022-09-09 23:42] LABS: Anisocytosis SLIGHT = 6-15 cells (100X) (0-5/hpf); Band 1 % (5-11); Eosinophils 1 % (0-10); Large Platelets SLIGHT; Lymphocytes 19 % (21-51); MDiff Complete? YES; Mean Platelet Volume 9.8 fL (7.4-10.4); Monocytes 5 % (0-10); Neutrophil 73 % (42-75); Platelet Count 116 10x3/uL (130-400); Platelet Morphology Comment Appears Decreased; Target Cells SLIGHT = 2-5 cells (100X) (0-1/hpf)
== END 2022-09-10 01:38 | disposition home or self-care (01) ==
LOC: ERS 21:50
DX: K57.92 Diverticulitis of intestine, part unspecified, without perforation or abscess without bleeding (principal); D72.829 Elevated white blood cell count, unspecified; E78.5 Hyperlipidemia, unspecified; I10 Essential (primary) hypertension; Z79.82 Long term (current) use of aspirin; Z87.891 Personal history of nicotine dependence
CPT/HCPCS: 36415; 74176; 80053; 83690; 85025; 96374; 96375; J2270; J2405

== ENCOUNTER 2022-09-23 09:13 | Inpatient (IN) | payer OTHER, MEDICAID ==
[~2022-09-23 09:13] MED LIST: Iopamidol-370 76% 500 ML MDV (1 ML CHARGE) ONE
[2022-09-23] MEDS ORDERED: Morphine 4 MG/ML VIAL ONE (09:54)
[2022-09-23] MEDS ORDERED: Ondansetron PF 4 MG/2 ML Vial ONE (09:54)
[2022-09-23 10:16] LABS: #Eosinphils 0.1 thou/uL (0.0-0.7); #Lymphocytes 1.6 thou/uL (1.20-3.40); #Monocytes 1.1 thou/uL (0.11-0.59); #Neutrophils 10.7 thou/uL (1.40-6.50); %Basophils 0.1 % (0.0-1.0); %Eosinophils 0.7 % (0.0-10.0); %Lymphocytes 11.8 % (21.0-51.0); %Monocytes 8.4 % (0.0-10.0); Hemoglobin 11.1 g/dL (14.0-18.0); Mean Corpuscular HGB CONC 31.9 g/dL (32.0-36.0); Mean Corpuscular Hemoglobin 26.6 pg (27.0-31.0); Mean Corpuscular Volume 83.4 fl (78.0-98.0); Mean Platelet Volume 10.2 fL (7.4-10.4); Platelet Count 197 10x3/uL (130-400); RBC Distribution Width 17.7 % (11.5-14.5); Red Blood Cell (RBC) Count 4.16 mill/uL (4.70-6.10); White Blood Cell (WBC) Count 13.6 10x3/uL (4.8-10.8)
[2022-09-23 10:40] LABS: ALT (SGPT) 10 U/L (8-55); AST (SGOT) 19 U/L (5-34); Albumin 3.7 g/dL (3.4-4.8); Alkaline Phosphatase 56 U/L (40-110); Anion Gap 18 mmol/L (10-20); BUN (Urea Nitrogen) 22 mg/dL (8.4-25.7); Bilirubin, Total 0.8 mg/dL (0.2-1.2); Calc. Creatinine Clearance 0 mL/min (70-130); Calcium 9.4 mg/dL (7.8-10.44); Carbon Dioxide 16 mmol/L (23-31); Chloride 109 mmol/L (98-107); Estimated GFR 44; Globulin 3.4 g/dL (2.4-3.5); Glucose 91 mg/dL (83-110); Lipase 19 U/L (8-78); Potassium 4.2 mmol/L (3.5-5.1); Protein, Total 7.1 g/dL (5.8-8.1); Sodium 139 mmol/L (136-145)
[2022-09-23 11:02] LABS: CKMB 1.5 ng/mL (0-6.6)
[2022-09-23 12:52] LABS: Bacteria/HPF None Seen HPF (None Seen); Bilirubin Negative (Negative); Blood, Urine Negative (Negative); Clarity Clear (Clear); Glucose, Urine (Dipstick) 500 mg/dL (Negative); Ketone, Urine Negative (Negative); Leukocyte Negative Leu/uL (Negative); Nitrite Negative (Negative); Protein, Urine (Dipstick) 200 mg/dL (Neg-Trace); RBC/HPF 0-3 HPF (0-3); Specific Gravity, Urine 1.036 (1.002-1.036); Squamous Epithelial 0-3 HPF (0-3); Urobilinogen Normal mg/dL (Less than 2); WBC/HPF 0-3 HPF (0-3); pH, Urine 5.5 (5.0-9.0)
[2022-09-23] MEDS ORDERED: Piperacillin/Tazobactam 4.5 GM VIAL ONE (13:07)
[2022-09-23] MEDS ORDERED: Ondansetron PF 4 MG/2 ML Vial IVP PRN (13:36)
[2022-09-23 15:28] LABS: Troponin I 0.042 ng/mL (< 0.028)
[2022-09-23] MEDS ORDERED: Lorazepam 2 MG/ML VIAL IM PRN (16:37)
[2022-09-23] MEDS ORDERED: Lorazepam 1 MG TAB PO PRN (16:37)
[2022-09-23] MEDS ORDERED: Ondansetron ODT 4 MG TAB PO PRN (16:37)
[2022-09-23] MEDS ORDERED: Electrolyte Replacement Protocol 1 EACH FS SCH (16:45)
[2022-09-23 17:17] VITALS: BMI 29.8
[2022-09-23] MEDS: Lorazepam 1 MG TAB PO SCH ×2 (17:44→22:29)
[2022-09-23] MEDS: Sodium Bicarbonate Tab 325 MG TAB PO SCH ×2 (17:44→21:01)
[2022-09-23] MEDS: Thiamine HCl 200 MG/2 ML VIAL SLOW IVP SCH (17:44)
[2022-09-23] MEDS: Carvedilol 3.125 MG TAB PO SCH (17:44)
[2022-09-23 17:53] LABS: Troponin I 0.034 ng/mL (< 0.028)
[2022-09-23] MEDS: Sacubitril 49 MG/Valsartan 51 MG TABLET PO SCH (21:01)
[2022-09-24] MEDS: Lorazepam 1 MG TAB PO SCH (04:56)
[2022-09-24 05:09] LABS: #Eosinphils 0.2 thou/uL (0.0-0.7); #Lymphocytes 1.5 thou/uL (1.20-3.40); #Monocytes 0.9 thou/uL (0.11-0.59); #Neutrophils 8.5 thou/uL (1.40-6.50); %Basophils 0.4 % (0.0-1.0); %Eosinophils 1.5 % (0.0-10.0); %Lymphocytes 13.8 % (21.0-51.0); %Monocytes 8.2 % (0.0-10.0); %Neutrophils 76.1 % (42.0-75.0); Hemoglobin 10.8 g/dL (14.0-18.0); Mean Corpuscular HGB CONC 31.4 g/dL (32.0-36.0); Mean Corpuscular Hemoglobin 26.4 pg (27.0-31.0); Mean Corpuscular Volume 83.9 fl (78.0-98.0); Mean Platelet Volume 10.3 fL (7.4-10.4); Platelet Count 208 10x3/uL (130-400); RBC Distribution Width 17.9 % (11.5-14.5); White Blood Cell (WBC) Count 11.2 10x3/uL (4.8-10.8)
[2022-09-24 05:43] LABS: Anion Gap 16 mmol/L (10-20); BUN (Urea Nitrogen) 24 mg/dL (8.4-25.7); Calc. Creatinine Clearance 48 mL/min (70-130); Calcium 9.2 mg/dL (7.8-10.44); Carbon Dioxide 15 mmol/L (23-31); Chloride 110 mmol/L (98-107); Estimated GFR 42; Glucose 85 mg/dL (83-110); Potassium 4.3 mmol/L (3.5-5.1); Sodium 137 mmol/L (136-145)
[2022-09-24] MEDS: Sodium Bicarbonate Tab 325 MG TAB PO SCH ×3 (09:13→21:39)
[2022-09-24] MEDS: Carvedilol 3.125 MG TAB PO SCH ×2 (09:14→17:58)
[2022-09-24] MEDS: Multivit, Therapeutic 1 TAB PO SCH (09:14)
[2022-09-24] MEDS: Aspirin 81 mg Enteric Coated Tablet PO SCH (09:14)
[2022-09-24] MEDS: Clopidogrel Bisulfate 75 MG TAB PO SCH (09:14)
[2022-09-24] MEDS: Folic Acid 1 MG TAB PO SCH (09:14)
[2022-09-24] MEDS: Allopurinol 300 MG TAB PO SCH (09:14)
[2022-09-24] MEDS: Empagliflozin 10 MG TAB PO SCH (09:14)
[2022-09-24] MEDS: Rosuvastatin 20 MG TAB PO SCH (09:14)
[2022-09-24] MEDS: Sacubitril 49 MG/Valsartan 51 MG TABLET PO SCH (09:26)
[2022-09-24] MEDS: Sodium Bicarbonate 150 MEQ in Dextrose 5% in Water 1,000 ML IV SCH (12:36)
[2022-09-24] MEDS ORDERED: Lorazepam 1 MG TAB PO PRN (16:37)
[2022-09-24] MEDS: Thiamine HCl 200 MG/2 ML VIAL SLOW IVP SCH (18:17)
[2022-09-25] MEDS: Sodium Bicarbonate 150 MEQ in Dextrose 5% in Water 1,000 ML IV SCH (06:42)
[2022-09-25] MEDS ORDERED: Sodium Chloride 0.9% 1,000 ML IV SCH ×2 (09:00→12:42)
[2022-09-25] MEDS: Empagliflozin 10 MG TAB PO SCH (09:56)
[2022-09-25] MEDS: Carvedilol 3.125 MG TAB PO SCH ×2 (09:56→16:21)
[2022-09-25] MEDS: metroNIDAZOLE 500 MG in Premix Bag 1 BAG IVPB SCH ×2 (09:56→16:20)
[2022-09-25] MEDS: Clopidogrel Bisulfate 75 MG TAB PO SCH (09:56)
[2022-09-25] MEDS: Folic Acid 1 MG TAB PO SCH (09:56)
[2022-09-25] MEDS: Sodium Bicarbonate Tab 325 MG TAB PO SCH ×3 (09:56→19:53)
[2022-09-25] MEDS: Allopurinol 300 MG TAB PO SCH (09:56)
[2022-09-25] MEDS: Rosuvastatin 20 MG TAB PO SCH (09:56)
[2022-09-25] MEDS: Multivit, Therapeutic 1 TAB PO SCH (09:56)
[2022-09-25] MEDS: Aspirin 81 mg Enteric Coated Tablet PO SCH (09:56)
[2022-09-25] MEDS ORDERED: Lidocaine 2% 6 ML SYR FS SCH (15:45)
[2022-09-25] MEDS: Thiamine HCl 200 MG/2 ML VIAL SLOW IVP SCH (16:21)
[2022-09-25] MEDS ORDERED: Lorazepam 1 MG TAB PO PRN (16:37)
[2022-09-25] MEDS ORDERED: Lorazepam 0.5 MG TAB PO SCH (16:45)
[2022-09-25] MEDS: Acetaminophen 325 MG TAB PO PRN (19:47)
[2022-09-26] MEDS: metroNIDAZOLE 500 MG in Premix Bag 1 BAG IVPB SCH ×3 (00:45→17:51)
[2022-09-26 04:26] LABS: #Basophils 0.1 thou/uL (0.0-0.2); #Eosinphils 0.3 thou/uL (0.0-0.7); #Lymphocytes 1.5 thou/uL (1.20-3.40); #Monocytes 1.2 thou/uL (0.11-0.59); #Neutrophils 6.4 thou/uL (1.40-6.50); %Basophils 0.5 % (0.0-1.0); %Lymphocytes 16.2 % (21.0-51.0); %Monocytes 12.3 % (0.0-10.0); Hemoglobin 11.7 g/dL (14.0-18.0); Mean Corpuscular HGB CONC 30.3 g/dL (32.0-36.0); Mean Corpuscular Hemoglobin 25.8 pg (27.0-31.0); Mean Corpuscular Volume 85.1 fl (78.0-98.0); Mean Platelet Volume 10.9 fL (7.4-10.4); Platelet Count 180 10x3/uL (130-400); RBC Distribution Width 18.3 % (11.5-14.5); Red Blood Cell (RBC) Count 4.52 mill/uL (4.70-6.10); White Blood Cell (WBC) Count 9.5 10x3/uL (4.8-10.8)
[2022-09-26 04:43] LABS: Anion Gap 17 mmol/L (10-20); BUN (Urea Nitrogen) 28 mg/dL (8.4-25.7); Calc. Creatinine Clearance 53 mL/min (70-130); Calcium 8.9 mg/dL (7.8-10.44); Carbon Dioxide 16 mmol/L (23-31); Chloride 110 mmol/L (98-107); Estimated GFR 48; Glucose 96 mg/dL (83-110); Sodium 139 mmol/L (136-145)
[2022-09-26] MEDS: Sodium Chloride 0.9% 1,000 ML IV SCH ×2 (08:14→15:34)
[2022-09-26] MEDS: Carvedilol 3.125 MG TAB PO SCH ×2 (08:36→17:51)
[2022-09-26] MEDS: Multivit, Therapeutic 1 TAB PO SCH (08:36)
[2022-09-26] MEDS: Allopurinol 300 MG TAB PO SCH (08:36)
[2022-09-26] MEDS: Tamsulosin HCl 0.4 MG CAP PO SCH (08:36)
[2022-09-26] MEDS: Empagliflozin 10 MG TAB PO SCH (08:36)
[2022-09-26] MEDS: Sodium Bicarbonate Tab 325 MG TAB PO SCH ×3 (08:36→20:28)
[2022-09-26] MEDS: Folic Acid 1 MG TAB PO SCH (08:36)
[2022-09-26] MEDS: Rosuvastatin 20 MG TAB PO SCH (08:36)
[2022-09-26] MEDS: Aspirin 81 mg Enteric Coated Tablet PO SCH (10:16)
[2022-09-26] MEDS: Clopidogrel Bisulfate 75 MG TAB PO SCH (10:16)
[2022-09-26] MEDS ORDERED: Iopamidol 15 ML ONE (13:50)
[2022-09-26] MEDS ORDERED: Promethazine HCl 25 MG/ML VIAL IM PRN (13:54)
[2022-09-26] MEDS ORDERED: Ondansetron HCl/PF 4 MG/2 ML Vial IVP PRN (13:54)
[2022-09-26] MEDS ORDERED: Midazolam HCl 2 mg/2 ml Vial ONE (14:00)
[2022-09-26] MEDS ORDERED: KETAMINE 100 MG/ML (5ML VIAL) ONE (14:00)
[2022-09-26] MEDS ORDERED: Lorazepam 0.5 MG TAB PO PRN (16:37)
[2022-09-26] MEDS: Thiamine 100 MG TAB PO SCH (17:51)
[2022-09-27] MEDS: metroNIDAZOLE 500 MG in Premix Bag 1 BAG IVPB SCH ×3 (00:54→17:39)
[2022-09-27] MEDS: Acetaminophen 325 MG TAB PO PRN (01:54)
[2022-09-27] MEDS: Sodium Chloride 0.9% 1,000 ML IV SCH ×3 (02:50→17:40)
[2022-09-27 08:05] LABS: #Eosinphils 0.1 thou/uL (0.0-0.7); #Lymphocytes 1.1 thou/uL (1.20-3.40); %Basophils 0.3 % (0.0-1.0); %Lymphocytes 11.8 % (21.0-51.0); %Monocytes 10.6 % (0.0-10.0); %Neutrophils 76.2 % (42.0-75.0); Hemoglobin 10.9 g/dL (14.0-18.0); Mean Corpuscular HGB CONC 31.3 g/dL (32.0-36.0); Mean Corpuscular Hemoglobin 26.4 pg (27.0-31.0); Mean Corpuscular Volume 84.3 fl (78.0-98.0); Mean Platelet Volume 10.1 fL (7.4-10.4); Platelet Count 198 10x3/uL (130-400); RBC Distribution Width 17.7 % (11.5-14.5); Red Blood Cell (RBC) Count 4.13 mill/uL (4.70-6.10); White Blood Cell (WBC) Count 9.1 10x3/uL (4.8-10.8)
[2022-09-27 08:30] LABS: ALT (SGPT) 15 U/L (8-55); AST (SGOT) 20 U/L (5-34); Albumin 3.7 g/dL (3.4-4.8); Alkaline Phosphatase 78 U/L (40-110); Anion Gap 16 mmol/L (10-20); BUN (Urea Nitrogen) 30 mg/dL (8.4-25.7); Bilirubin, Total 0.5 mg/dL (0.2-1.2); Calc. Creatinine Clearance 51 mL/min (70-130); Calcium 8.6 mg/dL (7.8-10.44); Carbon Dioxide 18 mmol/L (23-31); Chloride 110 mmol/L (98-107); Estimated GFR 45; Globulin 3.1 g/dL (2.4-3.5); Glucose 105 mg/dL (83-110); Potassium 3.7 mmol/L (3.5-5.1); Protein, Total 6.8 g/dL (5.8-8.1); Sodium 140 mmol/L (136-145)
[2022-09-27] MEDS: Allopurinol 300 MG TAB PO SCH (10:06)
[2022-09-27] MEDS: Clopidogrel Bisulfate 75 MG TAB PO SCH (10:06)
[2022-09-27] MEDS: Carvedilol 3.125 MG TAB PO SCH ×2 (10:06→17:39)
[2022-09-27] MEDS: Empagliflozin 10 MG TAB PO SCH (10:06)
[2022-09-27] MEDS: Folic Acid 1 MG TAB PO SCH (10:06)
[2022-09-27] MEDS: Aspirin 81 mg Enteric Coated Tablet PO SCH (10:06)
[2022-09-27] MEDS: Rosuvastatin 20 MG TAB PO SCH (10:14)
[2022-09-27] MEDS: Sodium Bicarbonate Tab 325 MG TAB PO SCH ×3 (10:14→20:53)
[2022-09-27] MEDS: Tamsulosin HCl 0.4 MG CAP PO SCH (10:14)
[2022-09-27] MEDS: Multivit, Therapeutic 1 TAB PO SCH (10:14)
[2022-09-27] MEDS: Thiamine 100 MG TAB PO SCH (17:39)
[2022-09-28] MEDS: Sodium Chloride 0.9% 1,000 ML IV SCH ×3 (01:39→17:24)
[2022-09-28] MEDS: metroNIDAZOLE 500 MG in Premix Bag 1 BAG IVPB SCH ×3 (02:18→16:26)
[2022-09-28 04:42] LABS: Hemoglobin 10.2 g/dL (14.0-18.0); Mean Corpuscular Hemoglobin 23.6 pg (27.0-31.0); Mean Corpuscular Volume 84.3 fl (78.0-98.0); Mean Platelet Volume 10.8 fL (7.4-10.4); Platelet Count 186 10x3/uL (130-400); RBC Distribution Width 18.5 % (11.5-14.5); Red Blood Cell (RBC) Count 4.32 mill/uL (4.70-6.10)
[2022-09-28 05:02] LABS: ALT (SGPT) 12 U/L (8-55); AST (SGOT) 19 U/L (5-34); Albumin 3.4 g/dL (3.4-4.8); Alkaline Phosphatase 74 U/L (40-110); Anion Gap 17 mmol/L (10-20); BUN (Urea Nitrogen) 26 mg/dL (8.4-25.7); Bilirubin, Total 0.5 mg/dL (0.2-1.2); Calc. Creatinine Clearance 57 mL/min (70-130); Calcium 8.6 mg/dL (7.8-10.44); Carbon Dioxide 15 mmol/L (23-31); Chloride 112 mmol/L (98-107); Estimated GFR 52; Globulin 2.9 g/dL (2.4-3.5); Glucose 86 mg/dL (83-110); Potassium 3.8 mmol/L (3.5-5.1); Protein, Total 6.3 g/dL (5.8-8.1); Sodium 140 mmol/L (136-145)
[2022-09-28 05:33] LABS: Hypochromia SLIGHT = 6-15 cells (100X) (0-5/hpf); Lymphocytes 27 % (21-51); MDiff Complete? YES; Monocytes 6 % (0-10); Neutrophil 67 % (42-75); Nucleated RBC 2 % (0); Target Cells SLIGHT = 2-5 cells (100X) (0-1/hpf); White Blood Cell (WBC) Count 9.1 10x3/uL (4.8-10.8)
[2022-09-28] MEDS: Carvedilol 3.125 MG TAB PO SCH ×2 (08:50→16:26)
[2022-09-28] MEDS: Allopurinol 300 MG TAB PO SCH (08:51)
[2022-09-28] MEDS: Tamsulosin HCl 0.4 MG CAP PO SCH (08:52)
[2022-09-28] MEDS: Sodium Bicarbonate Tab 325 MG TAB PO SCH ×3 (08:53→21:31)
[2022-09-28] MEDS: Multivit, Therapeutic 1 TAB PO SCH (08:53)
[2022-09-28] MEDS: Empagliflozin 10 MG TAB PO SCH (08:53)
[2022-09-28] MEDS: Clopidogrel Bisulfate 75 MG TAB PO SCH (08:54)
[2022-09-28] MEDS: Rosuvastatin 20 MG TAB PO SCH (08:54)
[2022-09-28] MEDS: Aspirin 81 mg Enteric Coated Tablet PO SCH (08:54)
[2022-09-28] MEDS: Folic Acid 1 MG TAB PO SCH (08:55)
[2022-09-28] MEDS ORDERED: Furosemide 40 MG/4 ML VIAL SLOW IVP SCH (11:30)
[2022-09-28] MEDS: Thiamine 100 MG TAB PO SCH (16:26)
[2022-09-28] MEDS: Ciprofloxacin 500 MG TAB PO SCH (21:31)
[2022-09-28] MEDS: metroNIDAZOLE 500 MG TAB PO SCH (21:32)
[2022-09-29 04:26] LABS: #Eosinphils 0.2 thou/uL (0.0-0.7); #Lymphocytes 1.5 thou/uL (1.20-3.40); #Monocytes 1.1 thou/uL (0.11-0.59); #Neutrophils 6.5 thou/uL (1.40-6.50); %Basophils 0.5 % (0.0-1.0); %Eosinophils 1.9 % (0.0-10.0); %Lymphocytes 16.1 % (21.0-51.0); %Monocytes 11.7 % (0.0-10.0); %Neutrophils 69.9 % (42.0-75.0); Hemoglobin 11.1 g/dL (14.0-18.0); Mean Corpuscular HGB CONC 31.6 g/dL (32.0-36.0); Mean Corpuscular Hemoglobin 26.7 pg (27.0-31.0); Mean Corpuscular Volume 84.3 fl (78.0-98.0); Mean Platelet Volume 10.7 fL (7.4-10.4); Platelet Count 196 10x3/uL (130-400); RBC Distribution Width 18.4 % (11.5-14.5); Red Blood Cell (RBC) Count 4.17 mill/uL (4.70-6.10); White Blood Cell (WBC) Count 9.3 10x3/uL (4.8-10.8)
[2022-09-29 04:40] LABS: ALT (SGPT) 15 U/L (8-55); AST (SGOT) 22 U/L (5-34); Albumin 3.5 g/dL (3.4-4.8); Alkaline Phosphatase 81 U/L (40-110); Anion Gap 18 mmol/L (10-20); BUN (Urea Nitrogen) 28 mg/dL (8.4-25.7); Bilirubin, Total 0.6 mg/dL (0.2-1.2); Calc. Creatinine Clearance 52 mL/min (70-130); Calcium 8.8 mg/dL (7.8-10.44); Carbon Dioxide 14 mmol/L (23-31); Chloride 113 mmol/L (98-107); Estimated GFR 46; Glucose 85 mg/dL (83-110); Magnesium 1.8 mg/dL (1.6-2.6); Potassium 3.7 mmol/L (3.5-5.1); Protein, Total 6.5 g/dL (5.8-8.1); Sodium 141 mmol/L (136-145)
[2022-09-29 04:41] LABS: Phosphorus 2.9 mg/dL (2.3-4.7)
[2022-09-29] MEDS: Ciprofloxacin 500 MG TAB PO SCH (05:20)
[2022-09-29] MEDS ORDERED: Magnesium 2 GM/50 ML(in water) 2 GM in Premix Bag 1 BAG IVPB SCH (08:00)
[2022-09-29 08:49] VITALS: BP 139/81; TEMP 98
[2022-09-29] MEDS ORDERED: Saccharomyces boulardii 250 MG CAP PO SCH (09:00)
[2022-09-29] MEDS: Tamsulosin HCl 0.4 MG CAP PO SCH (09:22)
[2022-09-29] MEDS: Rosuvastatin 20 MG TAB PO SCH (09:22)
[2022-09-29] MEDS: Carvedilol 3.125 MG TAB PO SCH (09:22)
[2022-09-29] MEDS: Multivit, Therapeutic 1 TAB PO SCH (09:23)
[2022-09-29] MEDS: metroNIDAZOLE 500 MG TAB PO SCH (09:23)
[2022-09-29] MEDS: Aspirin 81 mg Enteric Coated Tablet PO SCH (09:23)
[2022-09-29] MEDS: Allopurinol 300 MG TAB PO SCH (09:23)
[2022-09-29] MEDS: Sodium Bicarbonate Tab 325 MG TAB PO SCH (09:23)
[2022-09-29] MEDS: Empagliflozin 10 MG TAB PO SCH (09:23)
[2022-09-29] MEDS: Clopidogrel Bisulfate 75 MG TAB PO SCH (09:24)
[2022-09-29] MEDS: Folic Acid 1 MG TAB PO SCH (09:24)
== END 2022-09-29 11:40 | disposition home or self-care (01) | DRG 871 ==
LOC: ERS 09:13 → 2NO 16:29
PROVIDERS: ADMIT Internal Medicine; ATTEND Internal Medicine
PROC: 3E03329 Introduction of Other Anti-infective into Peripheral Vein, Percutaneous Approach (ICD-10-PCS; 2022-09-23)
PROC: 0T9B80Z Drainage of Bladder with Drainage Device, Via Natural or Artificial Opening Endoscopic (ICD-10-PCS; principal; 2022-09-26)
DX: A41.9 Sepsis, unspecified organism (principal); I21.A1 Myocardial infarction type 2; I50.22 Chronic systolic (congestive) heart failure; N17.9 Acute kidney failure, unspecified; E87.20 Acidosis, unspecified; K57.32 Diverticulitis of large intestine without perforation or abscess without bleeding; I13.0 Hypertensive heart and chronic kidney disease with heart failure and stage 1 through stage 4 chronic kidney disease, or unspecified chronic kidney disease; I25.10 Atherosclerotic heart disease of native coronary artery without angina pectoris; I27.20 Pulmonary hypertension, unspecified; E78.5 Hyperlipidemia, unspecified; M10.9 Gout, unspecified; F10.10 Alcohol abuse, uncomplicated; N18.30 Chronic kidney disease, stage 3 unspecified; I25.5 Ischemic cardiomyopathy; F17.210 Nicotine dependence, cigarettes, uncomplicated; N35.919 Unspecified urethral stricture, male, unspecified site; R33.9 Retention of urine, unspecified; Z79.82 Long term (current) use of aspirin; Z79.899 Other long term (current) drug therapy; Z95.5 Presence of coronary angioplasty implant and graft; Z95.2 Presence of prosthetic heart valve; Z95.810 Presence of automatic (implantable) cardiac defibrillator
CPT/HCPCS: 36415; 36416; 71045; 74176; 74177; 80048; 80053; 81003; 81015; 82553; 83605; 83690; 83735; 84100; 84484; 85025; 86140; 87040; 93005; 94760; 96365; 96375; J0744; J1650; J1940; J2250; J2270; J2405; J2543; J3411; J3475; J7050; J7070; Q9967

== ENCOUNTER 2022-10-06 13:06 | Inpatient (IN) | payer OTHER, MEDICAID ==
[2022-10-06 13:56] LABS: #Eosinphils 0.1 thou/uL (0.0-0.7); #Lymphocytes 1.5 thou/uL (1.20-3.40); #Monocytes 0.7 thou/uL (0.11-0.59); #Neutrophils 4.4 thou/uL (1.40-6.50); %Basophils 0.2 % (0.0-1.0); %Eosinophils 1.8 % (0.0-10.0); %Monocytes 9.9 % (0.0-10.0); %Neutrophils 65.1 % (42.0-75.0); Hemoglobin 11.6 g/dL (14.0-18.0); Mean Corpuscular HGB CONC 32.1 g/dL (32.0-36.0); Mean Corpuscular Hemoglobin 26.7 pg (27.0-31.0); Mean Corpuscular Volume 83.1 fl (78.0-98.0); Mean Platelet Volume 11.9 fL (7.4-10.4); Platelet Count 146 10x3/uL (130-400); Red Blood Cell (RBC) Count 4.36 mill/uL (4.70-6.10); White Blood Cell (WBC) Count 6.7 10x3/uL (4.8-10.8)
[2022-10-06 14:36] LABS: ALT (SGPT) 20 U/L (8-55); AST (SGOT) 34 U/L (5-34); Albumin 3.5 g/dL (3.4-4.8); Alkaline Phosphatase 66 U/L (40-110); Anion Gap 16 mmol/L (10-20); BUN (Urea Nitrogen) 18 mg/dL (8.4-25.7); Bilirubin, Total 0.8 mg/dL (0.2-1.2); Calc. Creatinine Clearance 0 mL/min (70-130); Calcium 8.9 mg/dL (7.8-10.44); Carbon Dioxide 19 mmol/L (23-31); Chloride 111 mmol/L (98-107); Estimated GFR 47; Globulin 3.8 g/dL (2.4-3.5); Glucose 91 mg/dL (83-110); Potassium 4.4 mmol/L (3.5-5.1); Protein, Total 7.3 g/dL (5.8-8.1); Sodium 142 mmol/L (136-145)
[2022-10-06 14:51] LABS: CKMB 1.6 ng/mL (0-6.6)
[2022-10-06] MEDS ORDERED: Furosemide 40 MG/4 ML VIAL ONE (15:35)
[2022-10-06] MEDS ORDERED: Ondansetron PF 4 MG/2 ML Vial IVP PRN (17:39)
[2022-10-06] MEDS ORDERED: Colchicine 0.6 MG TAB PO PRN (17:41)
[2022-10-06] MEDS ORDERED: Thiamine 100 MG TAB PO SCH (17:45)
[2022-10-06] MEDS ORDERED: Metolazone 5 MG TAB PO SCH (17:45)
[2022-10-06 18:50] LABS: Troponin I 0.063 ng/mL (< 0.028)
[2022-10-06] MEDS: metroNIDAZOLE 500 MG TAB PO SCH (20:36)
[2022-10-06] MEDS: Rosuvastatin 20 MG TAB PO SCH (20:36)
[2022-10-06] MEDS: Ciprofloxacin 500 MG TAB PO SCH (20:36)
[2022-10-06] MEDS: Sodium Bicarbonate Tab 325 MG TAB PO SCH (20:58)
[2022-10-06] MEDS ORDERED: Sacubitril 49 MG/Valsartan 51 MG TABLET PO SCH (21:00)
[2022-10-07] MEDS ORDERED: Ciprofloxacin 500 MG TAB ONE (05:56)
[2022-10-07] MEDS ORDERED: Furosemide 40 MG/4 ML VIAL ONE (05:56)
[2022-10-07] MEDS: Furosemide 40 MG/4 ML VIAL SLOW IVP SCH ×2 (06:04→13:42)
[2022-10-07] MEDS: Ciprofloxacin 500 MG TAB PO SCH ×2 (06:04→21:23)
[2022-10-07 08:56] LABS: #Basophils 0.1 thou/uL (0.0-0.2); #Eosinphils 0.2 thou/uL (0.0-0.7); #Lymphocytes 1.7 thou/uL (1.20-3.40); #Monocytes 0.7 thou/uL (0.11-0.59); #Neutrophils 5.3 thou/uL (1.40-6.50); %Eosinophils 2.4 % (0.0-10.0); %Monocytes 8.9 % (0.0-10.0); %Neutrophils 66.8 % (42.0-75.0); Hemoglobin 11.5 g/dL (14.0-18.0); Mean Corpuscular HGB CONC 31.2 g/dL (32.0-36.0); Mean Corpuscular Volume 83.4 fl (78.0-98.0); Mean Platelet Volume 11.3 fL (7.4-10.4); Platelet Count 152 10x3/uL (130-400); RBC Distribution Width 18.7 % (11.5-14.5); Red Blood Cell (RBC) Count 4.44 mill/uL (4.70-6.10); White Blood Cell (WBC) Count 7.9 10x3/uL (4.8-10.8)
[2022-10-07 09:57] LABS: Anion Gap 15 mmol/L (10-20); Calc. Creatinine Clearance 0 mL/min (70-130); Calcium 9.3 mg/dL (7.8-10.44); Carbon Dioxide 23 mmol/L (23-31); Chloride 109 mmol/L (98-107); Estimated GFR 45; Glucose 101 mg/dL (83-110); Phosphorus 3.1 mg/dL (2.3-4.7); Potassium 3.3 mmol/L (3.5-5.1); Sodium 144 mmol/L (136-145)
[2022-10-07] MEDS: Sacubitril 24MG/Valsartan 26 MG TAB PO SCH ×2 (09:57→21:23)
[2022-10-07] MEDS: metroNIDAZOLE 500 MG TAB PO SCH ×3 (09:57→21:23)
[2022-10-07] MEDS: Saccharomyces boulardii 250 MG CAP PO SCH (09:57)
[2022-10-07 09:58] LABS: BUN (Urea Nitrogen) 19 mg/dL (8.4-25.7)
[2022-10-07] MEDS: Sodium Bicarbonate Tab 325 MG TAB PO SCH ×3 (09:58→21:24)
[2022-10-07] MEDS: Empagliflozin 10 MG TAB PO SCH (09:58)
[2022-10-07] MEDS: Tamsulosin HCl 0.4 MG CAP PO SCH (09:58)
[2022-10-07] MEDS: Allopurinol 300 MG TAB PO SCH (09:58)
[2022-10-07] MEDS: Multivit, Therapeutic 1 TAB PO SCH (09:58)
[2022-10-07 09:59] LABS: Magnesium 1.8 mg/dL (1.6-2.6)
[2022-10-07] MEDS ORDERED: Potassium Chloride 20 MEQ TAB ONE (10:00)
[2022-10-07] MEDS ORDERED: Aspirin Chewable 81 MG TAB ONE (10:01)
[2022-10-07] MEDS ORDERED: Clopidogrel Bisulfate 75 MG TAB ONE (10:01)
[2022-10-07] MEDS: Potassium Chloride 20 MEQ TAB PO SCH (10:03)
[2022-10-07] MEDS: Clopidogrel Bisulfate 75 MG TAB PO SCH (10:03)
[2022-10-07] MEDS: Aspirin 81 mg Enteric Coated Tablet PO SCH (10:04)
[2022-10-07] MEDS: Metolazone 5 MG TAB PO SCH (10:07)
[2022-10-07] MEDS: Folic Acid 1 MG TAB PO SCH (10:08)
[2022-10-07 13:03] VITALS: BMI 30.9
[2022-10-07] MEDS: Carvedilol 3.125 MG TAB PO SCH (17:27)
[2022-10-07] MEDS: Rosuvastatin 20 MG TAB PO SCH (21:23)
[2022-10-08] MEDS: Ciprofloxacin 500 MG TAB PO SCH ×2 (05:12→20:10)
[2022-10-08] MEDS: Furosemide 40 MG/4 ML VIAL SLOW IVP SCH ×2 (05:12→14:33)
[2022-10-08 05:41] LABS: Anion Gap 15 mmol/L (10-20); BUN (Urea Nitrogen) 21 mg/dL (8.4-25.7); Calc. Creatinine Clearance 54 mL/min (70-130); Calcium 9.5 mg/dL (7.8-10.44); Carbon Dioxide 27 mmol/L (23-31); Chloride 103 mmol/L (98-107); Estimated GFR 46; Glucose 102 mg/dL (83-110); Potassium 3.1 mmol/L (3.5-5.1); Sodium 142 mmol/L (136-145)
[2022-10-08 05:49] LABS: #Basophils 0.1 thou/uL (0.0-0.2); #Eosinphils 0.3 thou/uL (0.0-0.7); #Lymphocytes 1.3 thou/uL (1.20-3.40); #Monocytes 0.7 thou/uL (0.11-0.59); #Neutrophils 5.9 thou/uL (1.40-6.50); %Basophils 0.7 % (0.0-1.0); %Eosinophils 4.2 % (0.0-10.0); %Lymphocytes 15.6 % (21.0-51.0); %Monocytes 8.5 % (0.0-10.0); Hemoglobin 11.7 g/dL (14.0-18.0); Mean Corpuscular HGB CONC 32.7 g/dL (32.0-36.0); Mean Corpuscular Hemoglobin 26.9 pg (27.0-31.0); Mean Corpuscular Volume 82.2 fl (78.0-98.0); Mean Platelet Volume 12.6 fL (7.4-10.4); Platelet Count 159 10x3/uL (130-400); RBC Distribution Width 18.8 % (11.5-14.5); Red Blood Cell (RBC) Count 4.35 mill/uL (4.70-6.10); White Blood Cell (WBC) Count 8.3 10x3/uL (4.8-10.8)
[2022-10-08] MEDS: Potassium Chloride 20 MEQ TAB PO SCH (07:36)
[2022-10-08] MEDS: Carvedilol 3.125 MG TAB PO SCH ×2 (07:36→17:26)
[2022-10-08] MEDS ORDERED: Potassium Chloride 20 MEQ TAB PO SCH (08:00)
[2022-10-08] MEDS: Metolazone 5 MG TAB PO SCH (08:25)
[2022-10-08] MEDS: Allopurinol 300 MG TAB PO SCH (09:14)
[2022-10-08] MEDS: Folic Acid 1 MG TAB PO SCH (09:14)
[2022-10-08] MEDS: metroNIDAZOLE 500 MG TAB PO SCH ×3 (09:14→20:10)
[2022-10-08] MEDS: Empagliflozin 10 MG TAB PO SCH (09:14)
[2022-10-08] MEDS: Sodium Bicarbonate Tab 325 MG TAB PO SCH (09:14)
[2022-10-08] MEDS: Clopidogrel Bisulfate 75 MG TAB PO SCH (09:14)
[2022-10-08] MEDS: Multivit, Therapeutic 1 TAB PO SCH (09:14)
[2022-10-08] MEDS: Tamsulosin HCl 0.4 MG CAP PO SCH (09:14)
[2022-10-08] MEDS: Aspirin 81 mg Enteric Coated Tablet PO SCH (09:14)
[2022-10-08] MEDS: Sacubitril 24MG/Valsartan 26 MG TAB PO SCH ×2 (09:14→20:11)
[2022-10-08] MEDS: Saccharomyces boulardii 250 MG CAP PO SCH (09:14)
[2022-10-08 09:37] LABS: Amphetamine Not Detected (NotDetected); Barbiturates Screen Not Detected (NotDetected); Benzodiazepine Screen Not Detected (NotDetected); Cocaine Metabolite Screen Detected (NotDetected); Methadone Not Detected (NotDetected); Methamphetamine Not Detected (NotDetected); Opiate Screen Not Detected (NotDetected); Oxycodone Screen Not Detected (NotDetected); Phencyclidine (PCP) Not Detected (NotDetected); THC/Cannabinoid Screen Not Detected (NotDetected); Tricyclic Screen Not Detected (NotDetected)
[2022-10-08] MEDS: Rosuvastatin 20 MG TAB PO SCH (20:10)
[2022-10-09 05:22] LABS: #Basophils 0.1 thou/uL (0.0-0.2); #Eosinphils 0.3 thou/uL (0.0-0.7); #Lymphocytes 1.9 thou/uL (1.20-3.40); #Monocytes 0.7 thou/uL (0.11-0.59); #Neutrophils 4.5 thou/uL (1.40-6.50); %Basophils 1.3 % (0.0-1.0); %Eosinophils 3.7 % (0.0-10.0); %Lymphocytes 25.6 % (21.0-51.0); %Monocytes 9.6 % (0.0-10.0); %Neutrophils 59.8 % (42.0-75.0); Hemoglobin 13.6 g/dL (14.0-18.0); Mean Corpuscular HGB CONC 31.3 g/dL (32.0-36.0); Mean Corpuscular Hemoglobin 25.3 pg (27.0-31.0); Mean Corpuscular Volume 80.7 fl (78.0-98.0); Mean Platelet Volume 14.7 fL (7.4-10.4); Platelet Count 233 10x3/uL (130-400); RBC Distribution Width 24.1 % (11.5-14.5); Red Blood Cell (RBC) Count 5.38 mill/uL (4.70-6.10); White Blood Cell (WBC) Count 7.5 10x3/uL (4.8-10.8)
[2022-10-09] MEDS: Ciprofloxacin 500 MG TAB PO SCH ×2 (06:24→21:51)
[2022-10-09] MEDS: Furosemide 40 MG/4 ML VIAL SLOW IVP SCH ×2 (06:24→14:00)
[2022-10-09 07:36] LABS: Calcium 9.9 mg/dL (7.8-10.44); Chloride 98 mmol/L (98-107); Sodium 139 mmol/L (136-145)
[2022-10-09 07:37] LABS: Glucose 104 mg/dL (83-110)
[2022-10-09 07:39] LABS: Anion Gap 15 mmol/L (10-20); Carbon Dioxide 29 mmol/L (23-31)
[2022-10-09 07:41] LABS: BUN (Urea Nitrogen) 22 mg/dL (8.4-25.7); Calc. Creatinine Clearance 57 mL/min (70-130); Estimated GFR 52
[2022-10-09] MEDS: Metolazone 5 MG TAB PO SCH (11:16)
[2022-10-09] MEDS: Aspirin 81 mg Enteric Coated Tablet PO SCH (11:17)
[2022-10-09] MEDS: Clopidogrel Bisulfate 75 MG TAB PO SCH (11:17)
[2022-10-09] MEDS: Empagliflozin 10 MG TAB PO SCH (11:17)
[2022-10-09] MEDS: Allopurinol 300 MG TAB PO SCH (11:17)
[2022-10-09] MEDS: Folic Acid 1 MG TAB PO SCH (11:18)
[2022-10-09] MEDS: Tamsulosin HCl 0.4 MG CAP PO SCH (11:18)
[2022-10-09] MEDS: metroNIDAZOLE 500 MG TAB PO SCH ×3 (11:18→21:51)
[2022-10-09] MEDS: Multivit, Therapeutic 1 TAB PO SCH (11:18)
[2022-10-09] MEDS: Saccharomyces boulardii 250 MG CAP PO SCH (11:18)
[2022-10-09] MEDS: Potassium Chloride 20 MEQ TAB PO SCH (11:56)
[2022-10-09] MEDS: Carvedilol 3.125 MG TAB PO SCH (11:56)
[2022-10-09] MEDS: Sacubitril 24MG/Valsartan 26 MG TAB PO SCH (11:56)
[2022-10-09] MEDS ORDERED: Potassium Chloride 20 MEQ TAB PO SCH (12:00)
[2022-10-09] MEDS ORDERED: Sodium Chloride 0.9% 500 ML IVPB SCH (13:15)
[2022-10-09] MEDS: Rosuvastatin 20 MG TAB PO SCH (21:51)
[2022-10-10] MEDS: Furosemide 40 MG/4 ML VIAL SLOW IVP SCH ×2 (05:58→10:21)
[2022-10-10] MEDS: Ciprofloxacin 500 MG TAB PO SCH ×2 (05:58→20:44)
[2022-10-10 08:30] LABS: Anion Gap 12 mmol/L (10-20); BUN (Urea Nitrogen) 25 mg/dL (8.4-25.7); Calc. Creatinine Clearance 55 mL/min (70-130); Calcium 8.8 mg/dL (7.8-10.44); Carbon Dioxide 30 mmol/L (23-31); Chloride 101 mmol/L (98-107); Estimated GFR 53; Glucose 87 mg/dL (83-110); Potassium 3.1 mmol/L (3.5-5.1); Sodium 140 mmol/L (136-145)
[2022-10-10] MEDS: Potassium Chloride 20 MEQ TAB PO SCH (10:06)
[2022-10-10] MEDS: Metolazone 5 MG TAB PO SCH (10:07)
[2022-10-10] MEDS: Allopurinol 300 MG TAB PO SCH (10:08)
[2022-10-10] MEDS: Aspirin 81 mg Enteric Coated Tablet PO SCH (10:08)
[2022-10-10] MEDS: Clopidogrel Bisulfate 75 MG TAB PO SCH (10:09)
[2022-10-10] MEDS: Multivit, Therapeutic 1 TAB PO SCH (10:09)
[2022-10-10] MEDS: metroNIDAZOLE 500 MG TAB PO SCH ×3 (10:09→20:44)
[2022-10-10] MEDS: Empagliflozin 10 MG TAB PO SCH (10:09)
[2022-10-10] MEDS: Folic Acid 1 MG TAB PO SCH (10:09)
[2022-10-10] MEDS: Tamsulosin HCl 0.4 MG CAP PO SCH (10:10)
[2022-10-10] MEDS: Saccharomyces boulardii 250 MG CAP PO SCH (10:10)
[2022-10-10] MEDS ORDERED: Potassium Chloride 20 MEQ TAB PO SCH (16:30)
[2022-10-10 19:51] LABS: Magnesium 1.6 mg/dL (1.6-2.6)
[2022-10-10] MEDS: Rosuvastatin 20 MG TAB PO SCH (20:44)
[2022-10-11 05:03] LABS: Hemoglobin 11.8 g/dL (14.0-18.0); Mean Corpuscular HGB CONC 30.4 g/dL (32.0-36.0); Mean Corpuscular Hemoglobin 24.6 pg (27.0-31.0); Mean Corpuscular Volume 80.8 fl (78.0-98.0); Mean Platelet Volume 10.9 fL (7.4-10.4); Platelet Count 169 10x3/uL (130-400)
[2022-10-11 05:12] LABS: Anion Gap 12 mmol/L (10-20); BUN (Urea Nitrogen) 21 mg/dL (8.4-25.7); Calc. Creatinine Clearance 59 mL/min (70-130); Calcium 8.7 mg/dL (7.8-10.44); Carbon Dioxide 30 mmol/L (23-31); Chloride 100 mmol/L (98-107); Estimated GFR 57; Glucose 92 mg/dL (83-110); Potassium 3.2 mmol/L (3.5-5.1); Sodium 139 mmol/L (136-145)
[2022-10-11 05:25] LABS: Eosinophils 2 % (0-10); Hypochromia SLIGHT = 6-15 cells (100X) (0-5/hpf); Lymphocytes 22 % (21-51); MDiff Complete? YES; Monocytes 15 % (0-10); Neutrophil 61 % (42-75); Target Cells SLIGHT = 2-5 cells (100X) (0-1/hpf)
[2022-10-11] MEDS: Furosemide 40 MG/4 ML VIAL SLOW IVP SCH (05:53)
[2022-10-11] MEDS: Ciprofloxacin 500 MG TAB PO SCH (05:53)
[2022-10-11] MEDS: Potassium Chloride 20 MEQ TAB PO SCH (08:29)
[2022-10-11] MEDS: Metolazone 5 MG TAB PO SCH (09:11)
[2022-10-11] MEDS: Folic Acid 1 MG TAB PO SCH (10:16)
[2022-10-11] MEDS: metroNIDAZOLE 500 MG TAB PO SCH (10:16)
[2022-10-11] MEDS: Allopurinol 300 MG TAB PO SCH (10:16)
[2022-10-11] MEDS: Empagliflozin 10 MG TAB PO SCH (10:16)
[2022-10-11] MEDS: Multivit, Therapeutic 1 TAB PO SCH (10:16)
[2022-10-11] MEDS: Clopidogrel Bisulfate 75 MG TAB PO SCH (10:16)
[2022-10-11] MEDS: Saccharomyces boulardii 250 MG CAP PO SCH (10:16)
[2022-10-11] MEDS: Aspirin 81 mg Enteric Coated Tablet PO SCH (10:16)
[2022-10-11] MEDS: Tamsulosin HCl 0.4 MG CAP PO SCH (10:17)
[2022-10-11] MEDS ORDERED: Potassium Chloride 20 MEQ TAB PO SCH (11:15)
[2022-10-11 12:30] VITALS: BP 90/56; TEMP 98.3
[2022-10-12] MEDS ORDERED: Furosemide 40 MG TAB PO SCH (07:30)
[2022-10-12] MEDS ORDERED: Carvedilol 3.125 MG TAB PO SCH (17:00)
[2022-10-12] MEDS ORDERED: Sacubitril 24MG/Valsartan 26 MG TAB PO SCH (21:00)
== END 2022-10-11 13:35 | disposition home health service (06) | DRG 291 ==
LOC: ERS 13:06 → SUATTDRO 13:06 → ERHOLD 17:37 → OBSVTOIN 10-07 11:50 → 2SW 10-07 12:37
PROVIDERS: ADMIT Emergency Medicine; ATTEND Emergency Medicine
DX: I13.0 Hypertensive heart and chronic kidney disease with heart failure and stage 1 through stage 4 chronic kidney disease, or unspecified chronic kidney disease (principal); I50.43 Acute on chronic combined systolic (congestive) and diastolic (congestive) heart failure; J96.21 Acute and chronic respiratory failure with hypoxia; K57.32 Diverticulitis of large intestine without perforation or abscess without bleeding; N17.9 Acute kidney failure, unspecified; E78.5 Hyperlipidemia, unspecified; I34.0 Nonrheumatic mitral (valve) insufficiency; N18.2 Chronic kidney disease, stage 2 (mild); F14.10 Cocaine abuse, uncomplicated; F12.10 Cannabis abuse, uncomplicated; F17.210 Nicotine dependence, cigarettes, uncomplicated; E87.6 Hypokalemia; I95.9 Hypotension, unspecified; Z79.899 Other long term (current) drug therapy; Z79.82 Long term (current) use of aspirin; Z95.810 Presence of automatic (implantable) cardiac defibrillator; Z95.2 Presence of prosthetic heart valve; Z79.02 Long term (current) use of antithrombotics/antiplatelets; Z83.3 Family history of diabetes mellitus; Z82.49 Family history of ischemic heart disease and other diseases of the circulatory system; Z80.9 Family history of malignant neoplasm, unspecified
CPT/HCPCS: 36415; 36416; 71045; 80048; 80053; 80306; 82553; 83735; 83880; 84100; 84484; 85025; 93005; 93306; 96374; J1650; J1940; J7030

== ENCOUNTER 2022-10-17 12:26 | Inpatient (IN) | payer OTHER, MEDICAID ==
[2022-10-17 13:27] LABS: #Basophils 0.1 thou/uL (0.0-0.2); #Eosinphils 0.1 thou/uL (0.0-0.7); #Monocytes 0.8 thou/uL (0.11-0.59); #Neutrophils 2.6 thou/uL (1.40-6.50); %Basophils 1.2 % (0.0-1.0); %Eosinophils 2.3 % (0.0-10.0); %Monocytes 15.7 % (0.0-10.0); %Neutrophils 54.4 % (42.0-75.0); Hemoglobin 12.6 g/dL (14.0-18.0); Mean Corpuscular HGB CONC 32.5 g/dL (32.0-36.0); Mean Platelet Volume 10.7 fL (7.4-10.4); Platelet Count 266 10x3/uL (130-400); Red Blood Cell (RBC) Count 5.24 mill/uL (4.70-6.10); White Blood Cell (WBC) Count 4.9 10x3/uL (4.8-10.8)
[2022-10-17 13:46] LABS: INR-International Normal Ratio 1.1; Prothrombin Time 14.5 sec (12.0-14.7)
[2022-10-17 13:54] LABS: ALT (SGPT) 27 U/L (8-55); AST (SGOT) 40 U/L (5-34); Albumin 3.2 g/dL (3.4-4.8); Alkaline Phosphatase 62 U/L (40-110); Anion Gap 15 mmol/L (10-20); BUN (Urea Nitrogen) 38 mg/dL (8.4-25.7); Bilirubin, Total 0.6 mg/dL (0.2-1.2); Calc. Creatinine Clearance 0 mL/min (70-130); Calcium 8.9 mg/dL (7.8-10.44); Carbon Dioxide 22 mmol/L (23-31); Chloride 103 mmol/L (98-107); Estimated GFR 43; Globulin 4.4 g/dL (2.4-3.5); Glucose 103 mg/dL (83-110); Magnesium 1.8 mg/dL (1.6-2.6); Potassium 3.3 mmol/L (3.5-5.1); Protein, Total 7.6 g/dL (5.8-8.1); Sodium 137 mmol/L (136-145)
[2022-10-17 13:57] LABS: Anisocytosis SLIGHT = 6-15 cells HPF (0-5); CellaVision Operator ID LAB.KB; Microcytosis SLIGHT = 6-15 cells HPF (0-5); Platelet Morphology Comment Platelets Normal; Polychromasia SLIGHT = 2-3 cells HPF (0-2); Target Cells SLIGHT = 2-5 cells HPF (0-1)
[2022-10-17 14:12] LABS: CKMB 0.8 ng/mL (0-6.6)
[2022-10-17 14:36] LABS: Bacteria/HPF None Seen HPF (None Seen); Bilirubin Negative (Negative); Blood, Urine Negative (Negative); Clarity Clear (Clear); Glucose, Urine (Dipstick) 30 mg/dL (Negative); Ketone, Urine Negative (Negative); Leukocyte Negative Leu/uL (Negative); Nitrite Negative (Negative); Protein, Urine (Dipstick) 30 mg/dL (Neg-Trace); RBC/HPF None Seen HPF (0-3); Specific Gravity, Urine 1.017 (1.002-1.036); Squamous Epithelial 0-3 HPF (0-3); Urobilinogen Normal mg/dL (Less than 2); WBC/HPF 0-3 HPF (0-3)
[2022-10-17] MEDS ORDERED: Potassium Chloride 20 MEQ TAB ONE (14:40)
[2022-10-17] MEDS ORDERED: Aspirin Chewable 81 MG TAB ONE (15:27)
[2022-10-17] MEDS ORDERED: Acetaminophen 325 MG TAB PO PRN (15:50)
[2022-10-17] MEDS ORDERED: Ondansetron ODT 4 MG TAB PO PRN (15:50)
[2022-10-17] MEDS ORDERED: Senokot S 8.6-50 MG TAB PO PRN (15:50)
[2022-10-17] MEDS ORDERED: Colchicine 0.6 MG TAB PO PRN (15:54)
[2022-10-17] MEDS ORDERED: Potassium Chloride 20 MEQ TAB PO SCH (16:30)
[2022-10-17 17:06] LABS: Troponin I 0.043 ng/mL (< 0.028)
[2022-10-17 19:46] LABS: Troponin I 0.046 ng/mL (< 0.028)
[2022-10-18 04:13] LABS: #Eosinphils 0.1 thou/uL (0.0-0.7); #Monocytes 0.7 thou/uL (0.11-0.59); #Neutrophils 5.1 thou/uL (1.40-6.50); %Basophils 0.6 % (0.0-1.0); %Eosinophils 1.7 % (0.0-10.0); %Lymphocytes 17.1 % (21.0-51.0); %Monocytes 9.5 % (0.0-10.0); %Neutrophils 70.7 % (42.0-75.0); Hemoglobin 13.1 g/dL (14.0-18.0); Mean Corpuscular HGB CONC 31.6 g/dL (32.0-36.0); Mean Corpuscular Hemoglobin 23.2 pg (27.0-31.0); Mean Corpuscular Volume 73.4 fl (78.0-98.0); Mean Platelet Volume 11.4 fL (7.4-10.4); Platelet Count 249 10x3/uL (130-400); RBC Distribution Width 18.9 % (11.5-14.5); Red Blood Cell (RBC) Count 5.64 mill/uL (4.70-6.10); White Blood Cell (WBC) Count 7.2 10x3/uL (4.8-10.8)
[2022-10-18 04:36] LABS: ALT (SGPT) 30 U/L (8-55); AST (SGOT) 38 U/L (5-34); Albumin 3.2 g/dL (3.4-4.8); Alkaline Phosphatase 67 U/L (40-110); Anion Gap 16 mmol/L (10-20); BUN (Urea Nitrogen) 34 mg/dL (8.4-25.7); Bilirubin, Total 0.4 mg/dL (0.2-1.2); Calc. Creatinine Clearance 52 mL/min (70-130); Calcium 8.9 mg/dL (7.8-10.44); Carbon Dioxide 23 mmol/L (23-31); Chloride 107 mmol/L (98-107); Estimated GFR 54; Globulin 4.4 g/dL (2.4-3.5); Glucose 96 mg/dL (83-110); Magnesium 1.6 mg/dL (1.6-2.6); Potassium 3.5 mmol/L (3.5-5.1); Protein, Total 7.6 g/dL (5.8-8.1); Sodium 142 mmol/L (136-145)
[2022-10-18 08:30] VITALS: BMI 26.0
[2022-10-18] MEDS: Empagliflozin 10 MG TAB PO SCH (08:44)
[2022-10-18] MEDS: Clopidogrel Bisulfate 75 MG TAB PO SCH (08:44)
[2022-10-18] MEDS: Allopurinol 300 MG TAB PO SCH (08:44)
[2022-10-18] MEDS: Aspirin 81 mg Enteric Coated Tablet PO SCH (08:44)
[2022-10-18] MEDS ORDERED: Saccharomyces boulardii 250 MG CAP PO SCH ×2 (10:03→10:15)
[2022-10-18] MEDS: Sodium Chloride 0.9% 1,000 ML IV SCH ×2 (11:16→23:29)
[2022-10-18] MEDS: Vancomycin HCl 125 MG/5 ML (BATCHED) UDCUP PO SCH ×3 (14:15→21:52)
[2022-10-19] MEDS ORDERED: Saccharomyces boulardii 250 MG CAP PO SCH (09:00)
[2022-10-19] MEDS: Aspirin 81 mg Enteric Coated Tablet PO SCH (09:31)
[2022-10-19] MEDS: Clopidogrel Bisulfate 75 MG TAB PO SCH (09:31)
[2022-10-19] MEDS: Empagliflozin 10 MG TAB PO SCH (09:32)
[2022-10-19] MEDS: Allopurinol 300 MG TAB PO SCH (09:32)
[2022-10-19] MEDS: Vancomycin HCl 125 MG/5 ML (BATCHED) UDCUP PO SCH ×2 (09:37→14:45)
[2022-10-19 11:35] VITALS: BP 121/81; TEMP 96.8
== END 2022-10-19 15:52 | disposition home or self-care (01) | DRG 372 ==
LOC: ERS 12:26 → 2NO 17:13
PROVIDERS: ADMIT Student in an Organized Health Care Education/Training Program; ATTEND Family Medicine
DX: A04.72 Enterocolitis due to Clostridium difficile, not specified as recurrent (principal); I13.0 Hypertensive heart and chronic kidney disease with heart failure and stage 1 through stage 4 chronic kidney disease, or unspecified chronic kidney disease; N17.9 Acute kidney failure, unspecified; I24.8 Other forms of acute ischemic heart disease; I42.9 Cardiomyopathy, unspecified; I50.22 Chronic systolic (congestive) heart failure; E86.0 Dehydration; E78.5 Hyperlipidemia, unspecified; M10.9 Gout, unspecified; J44.9 Chronic obstructive pulmonary disease, unspecified; N18.30 Chronic kidney disease, stage 3 unspecified; F14.10 Cocaine abuse, uncomplicated; E87.6 Hypokalemia; F17.210 Nicotine dependence, cigarettes, uncomplicated; Z79.82 Long term (current) use of aspirin; Z95.0 Presence of cardiac pacemaker; Z79.899 Other long term (current) drug therapy; Z95.2 Presence of prosthetic heart valve; Z98.890 Other specified postprocedural states
CPT/HCPCS: 36415; 71045; 80048; 80053; 81003; 81015; 82553; 83605; 83735; 84484; 85025; 85610; 85730; 87040; 87324; 87449; 93005; 94760; J1650; J7050; Q0162

== ENCOUNTER 2023-04-12 15:52 | Inpatient (IN) | payer OTHER, MEDICAID ==
[2023-04-12] MEDS ORDERED: LORazepam 2 MG/ML SYR.(CARPUJECT) ONE (15:58)
[2023-04-12] MEDS ORDERED: PROPOFOL 200 MG/20 ML VIAL ONE (16:00)
[2023-04-12] MEDS ORDERED: Rocuronium Bromide 10 MG/ML (10ML VIAL) ONE (16:00)
[2023-04-12] MEDS ORDERED: Propofol 1,000 MG/100 ML VIAL IV ONE (16:13)
[2023-04-12] MEDS ORDERED: Fentanyl CADD 100 ML IV SCH ×2 (16:15→17:30)
[2023-04-12] MEDS ORDERED: NOREPINEPHRINE 8 MG/250 ML-D5W 250 ML ONE (16:18)
[2023-04-12 16:20] LABS: Delete Auto Diff?? YES; Hematocrit 38.9 % (42.0-52.0); Hemoglobin 12.3 g/dL (14.0-18.0); Manual Diff?? YES; Mean Corpuscular HGB CONC 31.6 g/dL (32.0-36.0); Mean Corpuscular Volume 85.3 fl (78.0-98.0); Platelet Count 222 10x3/uL (130-400); RBC Distribution Width 15.6 % (11.5-14.5); Red Blood Cell (RBC) Count 4.56 mill/uL (4.70-6.10); White Blood Cell (WBC) Count 14.3 10x3/uL (4.8-10.8)
[2023-04-12 16:30] LABS: Analyzer IN Cardio ER; Base Excess (BEa) -19.5 mEq/L (-2.0 to +3.0); CO2 Tension 52.7 mmHg (35.0-45.0); Calcium, Ionized (arterial) 1.21 mmol/L (1.12-1.30); Carboxyhemoglobin (COHb) 0.2 gm% (0.0-3.0); Hematocrit-ABG 36 % (42.0-52.0); Hemoglobin (Hb) 12.3 g/dL (14.0-18.0); O2 Tension (PaO2), arterial 93.5 mmHg (> 70.0); Potassium - ABG Lab 4.13 mmol/L (3.70-5.30)
[2023-04-12 16:34] LABS: Puncture Site RBA; pH, Arterial 6.975 (7.35-7.45)
[2023-04-12 16:41] LABS: INR-International Normal Ratio 1.1; PTT 33.7 sec (22.9-36.1); Prothrombin Time 14.9 sec (12.0-14.7)
[2023-04-12 16:47] LABS: Band 1 % (5-11); CellaVision Operator ID LAB.KB; Eosinophils 1 % (0-10); Hypochromia SLIGHT = 6-15 cells HPF (0-5); Large Platelets 0.9 % (0-5); Lymphocytes 41 % (21-51); Monocytes 8 % (0-10); Neutrophil 41 % (42-75); Platelet Adequacy Comment Platelets Normal; Polychromasia SLIGHT = 2-3 cells HPF (0-2); Reactive Lymphocytes 7 % (0-10); Smudge Cells 20.7 %; Total Cell Count 116
[2023-04-12 16:59] LABS: Albumin 4.9 g/dL (3.4-4.8)
[2023-04-12 17:00] LABS: Chloride 107 mmol/L (98-107); Potassium 4.1 mmol/L (3.5-5.1); Sodium 141 mmol/L (136-145)
[2023-04-12 17:01] LABS: Calcium 9.3 mg/dL (7.8-10.44); Glucose 147 mg/dL (83-110)
[2023-04-12 17:02] LABS: Globulin 3.4 g/dL (2.4-3.5); Protein, Total 8.3 g/dL (5.8-8.1)
[2023-04-12 17:03] LABS: Anion Gap 21 mmol/L (10-20); Bilirubin, Total 0.2 mg/dL (0.2-1.2); Carbon Dioxide 17 mmol/L (23-31)
[2023-04-12 17:04] LABS: Alkaline Phosphatase 72 U/L (40-110)
[2023-04-12 17:05] LABS: Calc. Creatinine Clearance 0 mL/min (70-130); Estimated GFR 46
[2023-04-12 17:06] LABS: BUN (Urea Nitrogen) 28 mg/dL (8.4-25.7)
[2023-04-12 17:07] LABS: ALT (SGPT) 16 U/L (8-55); AST (SGOT) 20 U/L (5-34); CK (CPK) 107 U/L (30-200)
[2023-04-12] MEDS ORDERED: Ventilator Sedation Protocol 1 EACH FS ONE (17:19)
[2023-04-12] MEDS ORDERED: Ipratropium/Albuterol 3 ML NEB NEB PRN ×3 (17:20→19:06)
[2023-04-12 17:25] LABS: Bacteria/HPF None Seen HPF (None Seen); Bilirubin Negative (Negative); Blood, Urine Negative (Negative); CAUTI Indications for Culture Alt mental st,lethar; Clarity Clear (Clear); Glucose, Urine (Dipstick) Normal (Negative); Ketone, Urine Negative (Negative); Leukocyte Negative Leu/uL (Negative); Nitrite Negative (Negative); Protein, Urine (Dipstick) 30 mg/dL (Neg-Trace); RBC/HPF 0-3 HPF (0-3); Specific Gravity, Urine 1.019 (1.002-1.036); Squamous Epithelial 0-3 HPF (0-3); Urobilinogen Normal mg/dL (Less than 2); WBC/HPF 0-3 HPF (0-3); pH, Urine 5.5 (5.0-9.0)
[2023-04-12] MEDS ORDERED: DISCONTINUE PREVIOUS NARCOTIC PAIN MEDICATIONS AND BENZODIAZEPINES FS SCH (17:30)
[2023-04-12] MEDS ORDERED: Propofol BOLUS 1,000 MG/100 ML VIAL IV PRN (17:30)
[2023-04-12] MEDS ORDERED: Morphine 2 MG/ML VIAL SLOW IVP PRN (17:30)
[2023-04-12] MEDS ORDERED: Fentanyl BOLUS 250 ML IVPB PRN (17:30)
[2023-04-12] MEDS ORDERED: Lorazepam 2 MG/ML VIAL SLOW IVP PRN (17:30)
[2023-04-12 17:37] LABS: Urine Culture Reflex No No
[2023-04-12] MEDS ORDERED: Cefepime 2 GM in Sodium Chloride 0.9% 100 ML IVPB SCH (18:15)
[2023-04-12] MEDS ORDERED: metroNIDAZOLE 500 MG in Premix 1 BAG IVPB SCH (18:15)
[2023-04-12] MEDS ORDERED: Sodium Bicarbonate 150 MEQ in Dextrose 5% in Water 1,000 ML IV SCH ×2 (18:45→19:19)
[2023-04-12] MEDS ORDERED: levETIRAcetam 500 MG/5 ML VIAL SLOW IVP SCH (18:45)
[2023-04-12] MEDS ORDERED: Meropenem 1 GM in Sodium Chloride 0.9% 100 ML IVPB SCH (19:00)
[2023-04-12] MEDS ORDERED: Sodium Bicarb 50 MEQ/50 ML Abboject 8.4% SYRINGE IVP SCH (19:30)
[2023-04-12] MEDS ORDERED: Sodium Chloride 0.9% 100 ML ONE (20:26)
[2023-04-12] MEDS ORDERED: Vancomycin (BATCH) 2 GM in Premix 1 BAG IVPB SCH (20:30)
[2023-04-12 20:50] LABS: Actual Bicarbonate (HCO3a) 21.2 mEq/L (22-28); Base Excess (BEa) -0.5 mEq/L (-2.0 to +3.0); CO2 Tension 27.1 mmHg (35.0-45.0); Calcium, Ionized (arterial) 1.16 mmol/L (1.12-1.30); Carboxyhemoglobin (COHb) 0.3 gm% (0.0-3.0); Hematocrit-ABG 38 % (42.0-52.0); Hemoglobin (Hb) 12.9 g/dL (14.0-18.0); O2 Tension (PaO2), arterial 161.6 mmHg (> 70.0); Potassium - ABG Lab 3.83 mmol/L (3.70-5.30); pH, Arterial 7.512 (7.35-7.45)
[2023-04-12 20:52] LABS: Puncture Site LBA
[2023-04-12] MEDS: Doxycycline 100 MG in Sodium Chloride 0.9% 100 ML IVPB SCH (21:02)
[2023-04-12] MEDS: Meropenem 1 GM in Sodium Chloride 0.9% 100 ML IVPB SCH (21:24)
[2023-04-12 21:53] LABS: Troponin I 0.071 ng/mL (< 0.028)
[2023-04-12] MEDS ORDERED: Ipratropium/Albuterol 3 ML NEB NEB SCH (22:30)
[2023-04-12 22:36] LABS: Lactic Acid 4.7 mmol/L (0.5-2.2)
[2023-04-12] MEDS: Propofol 1,000 MG/100 ML VIAL IV PRN (23:35)
[2023-04-12] MEDS: Lactated Ringer's 1,000 ML IV SCH (23:50)
[2023-04-12] MEDS: Lactated Ringer's 500 ML IV SCH (23:50)
[2023-04-13 00:52] LABS: Troponin I 0.074 ng/mL (< 0.028)
[2023-04-13] MEDS: Lorazepam 2 MG/ML VIAL SLOW IVP PRN (02:55)
[2023-04-13 03:40] LABS: Bacteria/HPF None Seen HPF (None Seen); Bilirubin Negative (Negative); Blood, Urine 1+ (Negative); Clarity Clear (Clear); Glucose, Urine (Dipstick) >=1000 mg/dL (Negative); Ketone, Urine Negative (Negative); Leukocyte 250 Leu/uL (Negative); Nitrite Negative (Negative); Protein, Urine (Dipstick) Negative (Neg-Trace); RBC/HPF 0-3 HPF (0-3); Specific Gravity, Urine 1.012 (1.002-1.036); Squamous Epithelial None Seen HPF (0-3); Urobilinogen Normal mg/dL (Less than 2)
[2023-04-13 03:43] LABS: Amphetamine Not Detected (NotDetected); Barbiturates Screen Not Detected (NotDetected); Benzodiazepine Screen Detected (NotDetected); Cocaine Metabolite Screen Not Detected (NotDetected); Methadone Not Detected (NotDetected); Methamphetamine Not Detected (NotDetected); Opiate Screen Not Detected (NotDetected); Oxycodone Screen Not Detected (NotDetected); Phencyclidine (PCP) Not Detected (NotDetected); THC/Cannabinoid Screen Not Detected (NotDetected); Tricyclic Screen Not Detected (NotDetected)
[2023-04-13] MEDS: Propofol 1,000 MG/100 ML VIAL IV PRN ×3 (04:30→13:25)
[2023-04-13 07:09] LABS: Magnesium 2.1 mg/dL (1.6-2.6); Phosphorus 2.8 mg/dL (2.3-4.7)
[2023-04-13 07:10] LABS: INR-International Normal Ratio 1.1; Prothrombin Time 14.4 sec (12.0-14.7)
[2023-04-13 07:24] LABS: Lactic Acid 4.4 mmol/L (0.5-2.2)
[2023-04-13 07:31] LABS: #Monocytes 1.8 thou/uL (0.11-0.59); #Neutrophils 8.4 thou/uL (1.40-6.50); %Basophils 0.2 % (0.0-1.0); %Lymphocytes 16.1 % (21.0-51.0); %Monocytes 14.8 % (0.0-10.0); %Neutrophils 68.6 % (42.0-75.0); Hematocrit 38.9 % (42.0-52.0); Mean Corpuscular HGB CONC 33.4 g/dL (32.0-36.0); Mean Corpuscular Hemoglobin 26.9 pg (27.0-31.0); Platelet Count 169 10x3/uL (130-400); RBC Distribution Width 15.1 % (11.5-14.5); Red Blood Cell (RBC) Count 4.84 mill/uL (4.70-6.10); White Blood Cell (WBC) Count 12.3 10x3/uL (4.8-10.8)
[2023-04-13 07:33] LABS: Mean Corpuscular Volume 80.4 fl (78.0-98.0)
[2023-04-13] MEDS ORDERED: Carvedilol 3.125 MG TAB PO SCH (08:00)
[2023-04-13] MEDS: Lactated Ringer's 500 ML IV SCH ×2 (08:00→16:20)
[2023-04-13] MEDS: Doxycycline 100 MG in Sodium Chloride 0.9% 100 ML IVPB SCH ×2 (08:15→20:21)
[2023-04-13] MEDS: Carvedilol 6.25 MG TAB PO SCH ×2 (08:15→16:15)
[2023-04-13] MEDS: Meropenem 1 GM in Sodium Chloride 0.9% 100 ML IVPB SCH ×2 (08:30→21:17)
[2023-04-13] MEDS ORDERED: levETIRAcetam 500 MG/5 ML VIAL SLOW IVP SCH (09:00)
[2023-04-13] MEDS: Lactated Ringer's 1,000 ML IV SCH (09:30)
[2023-04-13] MEDS: Vancomycin (BATCH) 1.25 GM in Premix 1 BAG IVPB SCH (17:45)
[2023-04-13 18:37] LABS: Lactic Acid 2.8 mmol/L (0.5-2.2)
[2023-04-13] MEDS: levETIRAcetam 500 MG/5 ML VIAL SLOW IVP SCH (21:17)
[2023-04-13] MEDS: Rosuvastatin 20 MG TAB PO SCH (21:18)
[2023-04-14] MEDS: Propofol 1,000 MG/100 ML VIAL IV PRN ×5 (00:20→23:55)
[2023-04-14] MEDS: Lactated Ringer's 500 ML IV SCH ×2 (05:26→12:14)
[2023-04-14 06:29] LABS: #Basophils 0.1 thou/uL (0.0-0.2); #Monocytes 1.4 thou/uL (0.11-0.59); #Neutrophils 9.1 thou/uL (1.40-6.50); %Basophils 0.4 % (0.0-1.0); %Eosinophils 0.1 % (0.0-10.0); %Neutrophils 71.1 % (42.0-75.0); Hematocrit 37.3 % (42.0-52.0); Hemoglobin 12.2 g/dL (14.0-18.0); Mean Corpuscular HGB CONC 32.7 g/dL (32.0-36.0); Mean Corpuscular Hemoglobin 26.7 pg (27.0-31.0); Mean Corpuscular Volume 81.6 fl (78.0-98.0); Mean Platelet Volume 11.4 fL (7.4-10.4); Platelet Count 157 10x3/uL (130-400); RBC Distribution Width 15.4 % (11.5-14.5); Red Blood Cell (RBC) Count 4.57 mill/uL (4.70-6.10); White Blood Cell (WBC) Count 12.8 10x3/uL (4.8-10.8)
[2023-04-14 06:54] LABS: Actual Bicarbonate (HCO3a) 21.3 mEq/L (22-28); Base Excess (BEa) 0.5 mEq/L (-2.0 to +3.0); Calcium, Ionized (arterial) 1.16 mmol/L (1.12-1.30); Carboxyhemoglobin (COHb) 0.2 gm% (0.0-3.0); Hematocrit-ABG 34 % (42.0-52.0); Hemoglobin (Hb) 11.7 g/dL (14.0-18.0); O2 Tension (PaO2), arterial 102.2 mmHg (> 70.0); pH, Arterial 7.568 (7.35-7.45)
[2023-04-14 07:02] LABS: Anion Gap 17 mmol/L (10-20); BUN (Urea Nitrogen) 24 mg/dL (8.4-25.7); Calc. Creatinine Clearance 64 mL/min (70-130); Carbon Dioxide 20 mmol/L (23-31); Chloride 109 mmol/L (98-107); Estimated GFR 57; Glucose 99 mg/dL (83-110); Magnesium 2.1 mg/dL (1.6-2.6); Potassium 3.6 mmol/L (3.5-5.1); Sodium 142 mmol/L (136-145)
[2023-04-14 07:44] LABS: ALV-art Gradient 188.775 mmHg (0-20); Puncture Site RRA
[2023-04-14] MEDS: Aspirin 81 mg Enteric Coated Tablet PO SCH (09:08)
[2023-04-14] MEDS: Carvedilol 6.25 MG TAB PO SCH ×2 (09:08→16:57)
[2023-04-14] MEDS: Sacubitril 24MG/Valsartan 26 MG TAB PO SCH (09:08)
[2023-04-14] MEDS: levETIRAcetam 500 MG/5 ML VIAL SLOW IVP SCH ×2 (09:09→21:00)
[2023-04-14] MEDS: Doxycycline 100 MG in Sodium Chloride 0.9% 100 ML IVPB SCH ×2 (09:09→20:59)
[2023-04-14] MEDS: Meropenem 1 GM in Sodium Chloride 0.9% 100 ML IVPB SCH ×2 (09:10→21:00)
[2023-04-14] MEDS ORDERED: Meropenem 1 GM in Sodium Chloride 0.9% 100 ML IVPB SCH (14:30)
[2023-04-14 18:03] LABS: Vancomycin, Trough 15.4 ug/mL
[2023-04-14] MEDS: Vancomycin (BATCH) 1.25 GM in Premix 1 BAG IVPB SCH (18:30)
[2023-04-14] MEDS: Rosuvastatin 20 MG TAB PO SCH (21:00)
[2023-04-14] MEDS: Lorazepam 2 MG/ML VIAL SLOW IVP PRN (23:16)
[2023-04-15] MEDS: Lactated Ringer's 500 ML IV SCH (02:58)
[2023-04-15 04:16] LABS: #Basophils 0.1 thou/uL (0.0-0.2); #Eosinphils 0.1 thou/uL (0.0-0.7); #Monocytes 2.1 thou/uL (0.11-0.59); #Neutrophils 10.2 thou/uL (1.40-6.50); %Basophils 0.3 % (0.0-1.0); %Eosinophils 0.4 % (0.0-10.0); %Lymphocytes 14.7 % (21.0-51.0); %Monocytes 14.5 % (0.0-10.0); %Neutrophils 69.6 % (42.0-75.0); Hematocrit 32.9 % (42.0-52.0); Hemoglobin 11.1 g/dL (14.0-18.0); Mean Corpuscular HGB CONC 33.7 g/dL (32.0-36.0); Mean Corpuscular Hemoglobin 27.5 pg (27.0-31.0); Mean Corpuscular Volume 81.4 fl (78.0-98.0); Mean Platelet Volume 11.3 fL (7.4-10.4); Platelet Count 157 10x3/uL (130-400); RBC Distribution Width 15.4 % (11.5-14.5); Red Blood Cell (RBC) Count 4.04 mill/uL (4.70-6.10); White Blood Cell (WBC) Count 14.7 10x3/uL (4.8-10.8)
[2023-04-15 04:41] LABS: Anion Gap 17 mmol/L (10-20); BUN (Urea Nitrogen) 21 mg/dL (8.4-25.7); Calc. Creatinine Clearance 92 mL/min (70-130); Calcium 8.8 mg/dL (7.8-10.44); Carbon Dioxide 16 mmol/L (23-31); Chloride 100 mmol/L (98-107); Estimated GFR 88; Glucose 99 mg/dL (83-110); Potassium 3.7 mmol/L (3.5-5.1); Sodium 129 mmol/L (136-145)
[2023-04-15] MEDS: Meropenem 1 GM in Sodium Chloride 0.9% 100 ML IVPB SCH ×3 (05:16→21:27)
[2023-04-15] MEDS: Propofol 1,000 MG/100 ML VIAL IV PRN ×4 (05:16→22:30)
[2023-04-15 07:55] LABS: Actual Bicarbonate (HCO3a) 23.2 mEq/L (22-28); Base Excess (BEa) -0.3 mEq/L (-2.0 to +3.0); CO2 Tension 34.2 mmHg (35.0-45.0); Calcium, Ionized (arterial) 1.17 mmol/L (1.12-1.30); Carboxyhemoglobin (COHb) 0.1 gm% (0.0-3.0); Hematocrit-ABG 35 % (42.0-52.0); Hemoglobin (Hb) 11.9 g/dL (14.0-18.0); O2 Tension (PaO2), arterial 124.7 mmHg (> 70.0); Potassium - ABG Lab 3.78 mmol/L (3.70-5.30); pH, Arterial 7.449 (7.35-7.45)
[2023-04-15 07:58] LABS: Puncture Site RBA
[2023-04-15] MEDS: Carvedilol 6.25 MG TAB PO SCH (08:32)
[2023-04-15] MEDS: Sacubitril 24MG/Valsartan 26 MG TAB PO SCH (08:33)
[2023-04-15] MEDS: Aspirin 81 mg Enteric Coated Tablet PO SCH (08:33)
[2023-04-15] MEDS: levETIRAcetam 500 MG/5 ML VIAL SLOW IVP SCH ×2 (08:33→20:17)
[2023-04-15] MEDS: Doxycycline 100 MG in Sodium Chloride 0.9% 100 ML IVPB SCH ×2 (08:35→20:17)
[2023-04-15] MEDS: Scopolamine 1 mg/72 hour Patch TD SCH (09:24)
[2023-04-15] MEDS ORDERED: Spironolactone 25 MG TAB PO SCH (09:30)
[2023-04-15] MEDS: methylPREDNISolone Sod Succ 40 MG VIAL IVP SCH ×2 (17:01→23:23)
[2023-04-15] MEDS: Rosuvastatin 20 MG TAB PO SCH (20:17)
[2023-04-16 04:20] LABS: #Monocytes 0.9 thou/uL (0.11-0.59); #Neutrophils 10.2 thou/uL (1.40-6.50); %Basophils 0.1 % (0.0-1.0); %Lymphocytes 9.6 % (21.0-51.0); %Monocytes 7.2 % (0.0-10.0); %Neutrophils 82.6 % (42.0-75.0); Hematocrit 33.1 % (42.0-52.0); Hemoglobin 10.8 g/dL (14.0-18.0); Mean Corpuscular HGB CONC 32.6 g/dL (32.0-36.0); Mean Corpuscular Hemoglobin 26.7 pg (27.0-31.0); Mean Corpuscular Volume 81.7 fl (78.0-98.0); Mean Platelet Volume 11.9 fL (7.4-10.4); Platelet Count 188 10x3/uL (130-400); RBC Distribution Width 15.3 % (11.5-14.5); Red Blood Cell (RBC) Count 4.05 mill/uL (4.70-6.10); White Blood Cell (WBC) Count 12.3 10x3/uL (4.8-10.8)
[2023-04-16] MEDS: Propofol 1,000 MG/100 ML VIAL IV PRN (04:22)
[2023-04-16 04:43] LABS: Anion Gap 15 mmol/L (10-20); BUN (Urea Nitrogen) 33 mg/dL (8.4-25.7); Calc. Creatinine Clearance 84 mL/min (70-130); Calcium 8.7 mg/dL (7.8-10.44); Carbon Dioxide 20 mmol/L (23-31); Chloride 110 mmol/L (98-107); Estimated GFR 79; Glucose 137 mg/dL (83-110); Potassium 4.3 mmol/L (3.5-5.1); Sodium 141 mmol/L (136-145)
[2023-04-16] MEDS: methylPREDNISolone Sod Succ 40 MG VIAL IVP SCH ×2 (04:59→17:57)
[2023-04-16] MEDS: Meropenem 1 GM in Sodium Chloride 0.9% 100 ML IVPB SCH (04:59)
[2023-04-16 06:08] LABS: Magnesium 2.1 mg/dL (1.6-2.6)
[2023-04-16] MEDS ORDERED: Spironolactone 25 MG TAB PO SCH (08:00)
[2023-04-16] MEDS: Doxycycline 100 MG in Sodium Chloride 0.9% 100 ML IVPB SCH ×2 (08:18→20:16)
[2023-04-16] MEDS: Sacubitril 24MG/Valsartan 26 MG TAB PO SCH (08:18)
[2023-04-16] MEDS: levETIRAcetam 500 MG/5 ML VIAL SLOW IVP SCH ×2 (08:18→20:17)
[2023-04-16] MEDS: Aspirin 81 mg Enteric Coated Tablet PO SCH (08:18)
[2023-04-16] MEDS ORDERED: Furosemide 20 MG/2 ML VIAL SLOW IVP SCH (09:45)
[2023-04-16] MEDS ORDERED: Electrolyte Replacement Protocol FS PRN (12:00)
[2023-04-16] MEDS ORDERED: Lidocaine 4% Patch TD SCH (15:30)
[2023-04-16] MEDS: Lidocaine 4% Patch TD SCH (15:48)
[2023-04-16] MEDS: Spironolactone 25 MG TAB PO SCH (17:56)
[2023-04-16] MEDS: Rosuvastatin 20 MG TAB PO SCH (20:17)
[2023-04-17] MEDS: traMADol HCl 50 MG TAB PO PRN ×2 (00:09→09:33)
[2023-04-17] MEDS: Transdermal Patch Removal TOP SCH (04:33)
[2023-04-17 05:50] LABS: #Monocytes 1.4 thou/uL (0.11-0.59); #Neutrophils 13.8 thou/uL (1.40-6.50); %Basophils 0.1 % (0.0-1.0); %Eosinophils 0.1 % (0.0-10.0); %Lymphocytes 11.4 % (21.0-51.0); %Monocytes 8.1 % (0.0-10.0); %Neutrophils 79.8 % (42.0-75.0); Hematocrit 34.3 % (42.0-52.0); Mean Corpuscular HGB CONC 32.1 g/dL (32.0-36.0); Mean Corpuscular Hemoglobin 26.1 pg (27.0-31.0); Mean Corpuscular Volume 81.5 fl (78.0-98.0); Mean Platelet Volume 11.6 fL (7.4-10.4); Platelet Count 231 10x3/uL (130-400); RBC Distribution Width 15.2 % (11.5-14.5); Red Blood Cell (RBC) Count 4.21 mill/uL (4.70-6.10); White Blood Cell (WBC) Count 17.3 10x3/uL (4.8-10.8)
[2023-04-17] MEDS: Furosemide 20 MG/2 ML VIAL SLOW IVP SCH ×2 (06:08→13:23)
[2023-04-17] MEDS: methylPREDNISolone Sod Succ 40 MG VIAL IVP SCH ×2 (06:09→17:21)
[2023-04-17] MEDS: Aspirin 81 mg Enteric Coated Tablet PO SCH (07:36)
[2023-04-17] MEDS: Sacubitril 24MG/Valsartan 26 MG TAB PO SCH (07:36)
[2023-04-17] MEDS: levETIRAcetam 500 MG/5 ML VIAL SLOW IVP SCH (07:37)
[2023-04-17] MEDS: Doxycycline 100 MG in Sodium Chloride 0.9% 100 ML IVPB SCH (07:37)
[2023-04-17] MEDS: Spironolactone 25 MG TAB PO SCH ×2 (07:37→16:21)
[2023-04-17 08:25] LABS: Anion Gap 16 mmol/L (10-20); BUN (Urea Nitrogen) 34 mg/dL (8.4-25.7); Calc. Creatinine Clearance 96 mL/min (70-130); Calcium 9.2 mg/dL (7.8-10.44); Carbon Dioxide 19 mmol/L (23-31); Chloride 111 mmol/L (98-107); Estimated GFR 89; Glucose 85 mg/dL (83-110); Potassium 4.3 mmol/L (3.5-5.1); Sodium 142 mmol/L (136-145)
[2023-04-17] MEDS ORDERED: Lidocaine 4% Patch TD SCH (09:00)
[2023-04-17] MEDS: Acetaminophen 325 MG TAB PO PRN (10:40)
[2023-04-17] MEDS: hydrALAZINE 20 MG/ML VIAL SLOW IVP PRN ×2 (11:09→19:27)
[2023-04-17] MEDS: Lidocaine 4% Patch TD SCH (16:21)
[2023-04-17] MEDS: Rosuvastatin 20 MG TAB PO SCH (20:04)
[2023-04-17] MEDS: Doxycycline 100 MG CAP PO SCH (20:04)
[2023-04-17] MEDS: levETIRAcetam 500 MG TAB PO SCH (20:04)
[2023-04-17] MEDS ORDERED: Carvedilol 3.125 MG TAB PO SCH (21:00)
[2023-04-18] MEDS: Transdermal Patch Removal TOP SCH (04:52)
[2023-04-18] MEDS: Acetaminophen 325 MG TAB PO PRN ×2 (04:57→16:21)
[2023-04-18] MEDS: Furosemide 20 MG/2 ML VIAL SLOW IVP SCH ×2 (05:00→13:02)
[2023-04-18] MEDS: methylPREDNISolone Sod Succ 40 MG VIAL IVP SCH (05:00)
[2023-04-18] MEDS: traMADol HCl 50 MG TAB PO PRN ×2 (05:04→10:49)
[2023-04-18 05:57] LABS: #Monocytes 1.1 thou/uL (0.11-0.59); %Basophils 0.3 % (0.0-1.0); %Eosinophils 0.2 % (0.0-10.0); %Monocytes 8.6 % (0.0-10.0); %Neutrophils 76.4 % (42.0-75.0); Hematocrit 37.3 % (42.0-52.0); Hemoglobin 12.1 g/dL (14.0-18.0); Mean Corpuscular HGB CONC 32.4 g/dL (32.0-36.0); Platelet Count 304 10x3/uL (130-400); RBC Distribution Width 15.1 % (11.5-14.5); Red Blood Cell (RBC) Count 4.66 mill/uL (4.70-6.10); White Blood Cell (WBC) Count 13.1 10x3/uL (4.8-10.8)
[2023-04-18 06:21] LABS: Anion Gap 14 mmol/L (10-20); BUN (Urea Nitrogen) 39 mg/dL (8.4-25.7); Calc. Creatinine Clearance 82 mL/min (70-130); Calcium 9.6 mg/dL (7.8-10.44); Carbon Dioxide 23 mmol/L (23-31); Chloride 108 mmol/L (98-107); Estimated GFR 80; Glucose 104 mg/dL (83-110); Sodium 141 mmol/L (136-145)
[2023-04-18] MEDS: Aspirin 81 mg Enteric Coated Tablet PO SCH (08:21)
[2023-04-18] MEDS: Carvedilol 3.125 MG TAB PO SCH ×2 (08:21→16:22)
[2023-04-18] MEDS: Scopolamine 1 mg/72 hour Patch TD SCH (08:21)
[2023-04-18] MEDS: Sacubitril 24MG/Valsartan 26 MG TAB PO SCH (08:21)
[2023-04-18] MEDS: levETIRAcetam 500 MG TAB PO SCH ×2 (08:21→20:34)
[2023-04-18] MEDS: Spironolactone 25 MG TAB PO SCH ×2 (08:22→16:22)
[2023-04-18] MEDS: Doxycycline 100 MG CAP PO SCH ×2 (08:22→20:34)
[2023-04-18] MEDS: Lidocaine 4% Patch TD SCH (16:33)
[2023-04-18] MEDS: Rosuvastatin 20 MG TAB PO SCH (20:35)
[2023-04-19] MEDS: traMADol HCl 50 MG TAB PO PRN ×2 (01:37→16:39)
[2023-04-19] MEDS: Transdermal Patch Removal TOP SCH (03:13)
[2023-04-19] MEDS: Furosemide 20 MG/2 ML VIAL SLOW IVP SCH ×2 (05:01→16:37)
[2023-04-19] MEDS: methylPREDNISolone Sod Succ 40 MG VIAL IVP SCH (05:01)
[2023-04-19] MEDS: Spironolactone 25 MG TAB PO SCH ×2 (08:59→16:37)
[2023-04-19] MEDS: Carvedilol 3.125 MG TAB PO SCH ×2 (08:59→16:42)
[2023-04-19] MEDS: Doxycycline 100 MG CAP PO SCH ×2 (08:59→21:02)
[2023-04-19] MEDS: Sacubitril 24MG/Valsartan 26 MG TAB PO SCH (08:59)
[2023-04-19] MEDS: levETIRAcetam 500 MG TAB PO SCH ×2 (08:59→21:02)
[2023-04-19] MEDS: Aspirin 81 mg Enteric Coated Tablet PO SCH (09:00)
[2023-04-19 13:43] LABS: CO2 Tension 23.9 mmHg (35.0-45.0)
[2023-04-19] MEDS: Lidocaine 4% Patch TD SCH (16:37)
[2023-04-19] MEDS: Rosuvastatin 20 MG TAB PO SCH (21:01)
[2023-04-20] MEDS: methylPREDNISolone Sod Succ 40 MG VIAL IVP SCH (05:34)
[2023-04-20] MEDS: Transdermal Patch Removal TOP SCH (06:09)
[2023-04-20] MEDS: Aspirin 81 mg Enteric Coated Tablet PO SCH (08:43)
[2023-04-20] MEDS: Doxycycline 100 MG CAP PO SCH ×2 (08:43→20:22)
[2023-04-20] MEDS: Spironolactone 25 MG TAB PO SCH ×2 (08:43→18:02)
[2023-04-20] MEDS: Carvedilol 3.125 MG TAB PO SCH ×2 (08:43→18:02)
[2023-04-20] MEDS: levETIRAcetam 500 MG TAB PO SCH ×2 (08:43→20:22)
[2023-04-20] MEDS: Sacubitril 24MG/Valsartan 26 MG TAB PO SCH (08:48)
[2023-04-20] MEDS ORDERED: Furosemide 20 MG TAB PO SCH (09:00)
[2023-04-20] MEDS: Lidocaine 4% Patch TD SCH (18:00)
[2023-04-20] MEDS: traMADol HCl 50 MG TAB PO PRN (18:00)
[2023-04-20] MEDS: Rosuvastatin 20 MG TAB PO SCH (20:22)
[2023-04-21] MEDS: Transdermal Patch Removal TOP SCH (05:31)
[2023-04-21] MEDS: methylPREDNISolone Sod Succ 40 MG VIAL IVP SCH (05:32)
[2023-04-21] MEDS: Spironolactone 25 MG TAB PO SCH ×2 (08:47→18:31)
[2023-04-21] MEDS: Carvedilol 3.125 MG TAB PO SCH ×2 (08:47→18:31)
[2023-04-21] MEDS: Doxycycline 100 MG CAP PO SCH ×2 (08:48→21:13)
[2023-04-21] MEDS: Aspirin 81 mg Enteric Coated Tablet PO SCH (08:48)
[2023-04-21] MEDS: Sacubitril 24MG/Valsartan 26 MG TAB PO SCH (08:49)
[2023-04-21] MEDS: levETIRAcetam 500 MG TAB PO SCH ×2 (08:49→21:13)
[2023-04-21] MEDS: traMADol HCl 50 MG TAB PO PRN ×2 (08:49→21:12)
[2023-04-21] MEDS: Furosemide 20 MG TAB PO SCH (08:49)
[2023-04-21] MEDS: Scopolamine 1 mg/72 hour Patch TD SCH (10:25)
[2023-04-21] MEDS: Lidocaine 4% Patch TD SCH (18:31)
[2023-04-21] MEDS: Rosuvastatin 20 MG TAB PO SCH (21:13)
[2023-04-22] MEDS: Transdermal Patch Removal TOP SCH (04:49)
[2023-04-22] MEDS: methylPREDNISolone Sod Succ 40 MG VIAL IVP SCH (07:11)
[2023-04-22 07:14] LABS: #Basophils 0.1 thou/uL (0.0-0.2); #Eosinphils 0.2 thou/uL (0.0-0.7); #Monocytes 1.3 thou/uL (0.11-0.59); %Basophils 0.4 % (0.0-1.0); %Eosinophils 1.6 % (0.0-10.0); %Lymphocytes 21.1 % (21.0-51.0); %Monocytes 10.5 % (0.0-10.0); Hematocrit 35.1 % (42.0-52.0); Hemoglobin 11.2 g/dL (14.0-18.0); Mean Corpuscular HGB CONC 31.9 g/dL (32.0-36.0); Mean Corpuscular Hemoglobin 26.6 pg (27.0-31.0); Mean Corpuscular Volume 83.4 fl (78.0-98.0); Mean Platelet Volume 10.2 fL (7.4-10.4); Platelet Count 350 10x3/uL (130-400); RBC Distribution Width 15.3 % (11.5-14.5); Red Blood Cell (RBC) Count 4.21 mill/uL (4.70-6.10); White Blood Cell (WBC) Count 12.3 10x3/uL (4.8-10.8)
[2023-04-22 07:36] LABS: Anion Gap 12 mmol/L (10-20); BUN (Urea Nitrogen) 40 mg/dL (8.4-25.7); Calc. Creatinine Clearance 78 mL/min (70-130); Calcium 9.7 mg/dL (7.8-10.44); Carbon Dioxide 22 mmol/L (23-31); Chloride 111 mmol/L (98-107); Estimated GFR 75; Glucose 83 mg/dL (83-110); Potassium 4.5 mmol/L (3.5-5.1); Sodium 140 mmol/L (136-145)
[2023-04-22] MEDS: levETIRAcetam 500 MG TAB PO SCH ×2 (09:28→21:23)
[2023-04-22] MEDS: Aspirin 81 mg Enteric Coated Tablet PO SCH (09:28)
[2023-04-22] MEDS: Carvedilol 3.125 MG TAB PO SCH ×2 (09:33→17:20)
[2023-04-22] MEDS: Sacubitril 24MG/Valsartan 26 MG TAB PO SCH (09:34)
[2023-04-22] MEDS: Spironolactone 25 MG TAB PO SCH ×2 (09:34→17:20)
[2023-04-22] MEDS: Furosemide 20 MG TAB PO SCH (09:34)
[2023-04-22] MEDS: Lidocaine 4% Patch TD SCH (17:20)
[2023-04-22] MEDS: Rosuvastatin 20 MG TAB PO SCH (21:23)
[2023-04-23] MEDS: Transdermal Patch Removal TOP SCH (03:56)
[2023-04-23] MEDS: Sacubitril 24MG/Valsartan 26 MG TAB PO SCH (08:19)
[2023-04-23] MEDS: Furosemide 20 MG TAB PO SCH (08:19)
[2023-04-23] MEDS: Aspirin 81 mg Enteric Coated Tablet PO SCH (08:19)
[2023-04-23] MEDS: Spironolactone 25 MG TAB PO SCH ×2 (08:19→17:12)
[2023-04-23] MEDS: levETIRAcetam 500 MG TAB PO SCH ×2 (08:19→21:08)
[2023-04-23] MEDS: Carvedilol 3.125 MG TAB PO SCH ×2 (08:20→17:12)
[2023-04-23] MEDS: traMADol HCl 50 MG TAB PO PRN ×2 (11:25→21:09)
[2023-04-23] MEDS: Lidocaine 4% Patch TD SCH (17:12)
[2023-04-23] MEDS: methylPREDNISolone Sod Succ 40 MG VIAL IVP SCH (20:52)
[2023-04-23] MEDS: Rosuvastatin 20 MG TAB PO SCH (21:08)
[2023-04-24] MEDS: Transdermal Patch Removal TOP SCH (05:16)
[2023-04-24] MEDS: methylPREDNISolone Sod Succ 40 MG VIAL IVP SCH (05:16)
[2023-04-24] MEDS: traMADol HCl 50 MG TAB PO PRN ×3 (05:19→20:34)
[2023-04-24] MEDS: levETIRAcetam 500 MG TAB PO SCH ×2 (09:00→20:35)
[2023-04-24] MEDS: Sacubitril 24MG/Valsartan 26 MG TAB PO SCH (09:00)
[2023-04-24] MEDS: Furosemide 20 MG TAB PO SCH (09:00)
[2023-04-24] MEDS: Spironolactone 25 MG TAB PO SCH ×2 (09:00→16:37)
[2023-04-24] MEDS: Scopolamine 1 mg/72 hour Patch TD SCH (09:00)
[2023-04-24] MEDS: Aspirin 81 mg Enteric Coated Tablet PO SCH (09:00)
[2023-04-24] MEDS: Carvedilol 3.125 MG TAB PO SCH ×2 (09:00→16:36)
[2023-04-24] MEDS ORDERED: HYDROcodone/Acetaminophen 5/325 mg Tablet PO PRN (09:28)
[2023-04-24] MEDS ORDERED: HYDROcodone/Acetaminophen 5/325 mg Tablet PO SCH (09:30)
[2023-04-24] MEDS: Colchicine 0.6 MG TAB PO SCH ×2 (13:37→20:35)
[2023-04-24] MEDS: Lidocaine 4% Patch TD SCH (16:36)
[2023-04-24 20:16] VITALS: BP 156/87; TEMP 97.2
[2023-04-24] MEDS: Rosuvastatin 20 MG TAB PO SCH (20:35)
[2023-04-25] MEDS ORDERED: predniSONE 20 MG TAB PO SCH (08:00)
[2023-04-25] MEDS ORDERED: Saccharomyces boulardii 250 MG CAP PO SCH (09:00)
[2023-04-25] MEDS ORDERED: Empagliflozin 10 MG TAB PO SCH (09:00)
[2023-04-25] MEDS ORDERED: Clopidogrel Bisulfate 75 MG TAB PO SCH (09:00)
== END 2023-04-24 20:55 | DRG 871 ==
LOC: ERS 15:52 → CCU 18:41 → 2SE 04-18 18:00 → T4-A 04-23 10:38
PROVIDERS: ADMIT Student in an Organized Health Care Education/Training Program; ATTEND Family Medicine
PROC: 0T9B70Z Drainage of Bladder with Drainage Device, Via Natural or Artificial Opening (ICD-10-PCS; principal; 2023-04-12)
PROC: 0DH67UZ Insertion of Feeding Device into Stomach, Via Natural or Artificial Opening (ICD-10-PCS; 2023-04-12)
PROC: 0BH17EZ Insertion of Endotracheal Airway into Trachea, Via Natural or Artificial Opening (ICD-10-PCS; 2023-04-12)
PROC: 4A133R1 Monitoring of Arterial Saturation, Peripheral, Percutaneous Approach (ICD-10-PCS; 2023-04-12)
PROC: 5A1945Z Respiratory Ventilation, 24-96 Consecutive Hours (ICD-10-PCS; 2023-04-12)
PROC: 3E033XZ Introduction of Vasopressor into Peripheral Vein, Percutaneous Approach (ICD-10-PCS; 2023-04-12)
PROC: 3E03329 Introduction of Other Anti-infective into Peripheral Vein, Percutaneous Approach (ICD-10-PCS; 2023-04-12)
PROC: 4A00X4Z Measurement of Central Nervous Electrical Activity, External Approach (ICD-10-PCS; 2023-04-13)
DX: A41.9 Sepsis, unspecified organism (principal); G93.41 Metabolic encephalopathy; J96.02 Acute respiratory failure with hypercapnia; J96.01 Acute respiratory failure with hypoxia; J18.9 Pneumonia, unspecified organism; I50.43 Acute on chronic combined systolic (congestive) and diastolic (congestive) heart failure; E87.29 Other acidosis; I13.0 Hypertensive heart and chronic kidney disease with heart failure and stage 1 through stage 4 chronic kidney disease, or unspecified chronic kidney disease; N17.9 Acute kidney failure, unspecified; I69.354 Hemiplegia and hemiparesis following cerebral infarction affecting left non-dominant side; E87.1 Hypo-osmolality and hyponatremia; I42.9 Cardiomyopathy, unspecified; Z95.810 Presence of automatic (implantable) cardiac defibrillator; E78.5 Hyperlipidemia, unspecified; Z79.899 Other long term (current) drug therapy; Z79.82 Long term (current) use of aspirin; Z98.890 Other specified postprocedural states; Z83.3 Family history of diabetes mellitus; Z82.49 Family history of ischemic heart disease and other diseases of the circulatory system; D63.1 Anemia in chronic kidney disease; M10.9 Gout, unspecified; G40.901 Epilepsy, unspecified, not intractable, with status epilepticus; Z95.5 Presence of coronary angioplasty implant and graft; Z87.891 Personal history of nicotine dependence; N18.30 Chronic kidney disease, stage 3 unspecified; R65.20 Severe sepsis without septic shock
CPT/HCPCS: 31500; 36415; 36600; 51702; 70450; 71045; 74177; 80048; 80053; 80202; 80306; 80307; 81001; 81003; 81015; 82550; 82805; 83605; 83615; 83735; 83880; 84100; 84145; 84146; 84484; 85025; 85610; 85730; 87040; 87081; 93005; 93306; 94002; 94003; 95816; 95819; 96365; 96366; 96375; J0360; J1650; J1940; J1953; J2060; J2185; J2704; J2920; J3010; J3370; J3490; J7070; J7120; Q9967

== ENCOUNTER 2023-05-09 11:39 | Outpatient (CLI) | payer OTHER, MEDICAID | END 2023-05-09 11:40 | disposition home or self-care (01) | LOC: BICRAD 11:39 | PROVIDERS: ATTEND Nurse Practitioner Family | DX: I42.9 Cardiomyopathy, unspecified (principal) | CPT/HCPCS: 36415; 71046; 80053; 85025 ==

== ENCOUNTER 2023-08-29 06:15 | Day surgery (SDC) | payer OTHER, MEDICAID ==
[2023-08-28 09:24] VITALS: BMI 31.0
[2023-08-29] MEDS ORDERED: PROPOFOL 40 ML ONE (06:29)
[2023-08-29] MEDS ORDERED: Lidocaine 2% PF 5 ML VIAL ONE (06:29)
== END 2023-08-29 09:35 | disposition home or self-care (01) ==
LOC: SDC 06:15
PROVIDERS: ATTEND Internal Medicine
PROC: 0DJ08ZZ Inspection of Upper Intestinal Tract, Via Natural or Artificial Opening Endoscopic (ICD-10-PCS; principal; 2023-08-29)
PROC: 0DJD8ZZ Inspection of Lower Intestinal Tract, Via Natural or Artificial Opening Endoscopic (ICD-10-PCS; 2023-08-29)
DX: T70.29XA Other effects of high altitude, initial encounter (principal); K57.30 Diverticulosis of large intestine without perforation or abscess without bleeding; K64.8 Other hemorrhoids; K92.0 Hematemesis; D50.9 Iron deficiency anemia, unspecified; R19.5 Other fecal abnormalities; I13.0 Hypertensive heart and chronic kidney disease with heart failure and stage 1 through stage 4 chronic kidney disease, or unspecified chronic kidney disease; I50.9 Heart failure, unspecified; N18.9 Chronic kidney disease, unspecified; E78.5 Hyperlipidemia, unspecified; Z79.899 Other long term (current) drug therapy; Z95.810 Presence of automatic (implantable) cardiac defibrillator; Z87.891 Personal history of nicotine dependence
CPT/HCPCS: J2001; J2704